=== PATIENT | female | born 1990 | race Caucasian/White ===

== ENCOUNTER 2020-06-11 08:19 | Inpatient (IN) ==
--- NOTE | 2020-05-25 19:35 | PAT Medication Instructions ---
Medication Instructions Date of Service May 25, 2020 Home Medications aripiprazole 15 mg tablet 7.5 mg PO QPM carbamazepine 200 mg tablet 600 mg PO HS cyclobenzaprine 10 mg tablet 10 mg PO TID PRN sertraline 100 mg tablet 100 mg PO BID topiramate 25 mg tablet 50 mg PO BID trazodone 100 mg tablet 200 mg PO HS alprazolam [Xanax] 0.25 mg PO DAILY PRN DO NOT take the morning of surgery cyclobenzaprine 10 mg tablet 10 mg PO TID PRN Take morning of surgery With a small sip of water, OTHERWISE NOTHING TO EAT OR DRINK AFTER MIDNIGHT: sertraline 100 mg tablet 100 mg PO BID topiramate 25 mg tablet 50 mg PO BID alprazolam [Xanax] 0.25 mg PO DAILY PRN (if needed) Take evening before surgery sertraline 100 mg tablet 100 mg PO BID topiramate 25 mg tablet 50 mg PO BID alprazolam [Xanax] 0.25 mg PO DAILY PRN (if needed) aripiprazole 15 mg tablet 7.5 mg PO QPM carbamazepine 200 mg tablet 600 mg PO HS cyclobenzaprine 10 mg tablet 10 mg PO TID PRN (if needed) trazodone 100 mg tablet 200 mg PO HS Other Notes If you have any questions please call us at [phone] or [phone] or [phone] or [phone]
--- NOTE | 2020-05-27 09:14 | Anesthesiology Consultation ---
Date of Service May 27, 2020 Assessment & Plan (1) Encounter for pre-operative examination: Per PAT assessment on 05/26: Travel screen-Travel to [facility]. Resides in [facility]. No known COVID-19 positive contacts. No current COVID-19 related symptoms. Patient had preop COVID testing done for 04/2020 surgery which was negative. Patient schedueld for preop COVID testing scheduled 06/08 ([facility]). Awaiting results. - Check test AM DOS - Hx bronchospasm: "lung spasm" with partial thyroidectomy 09/2018- done at [facility]. Subsequently had lap [place]: 04/28/20 at [facility]: Grade view 1, MAC#3, ETT 7.5. Per anesthesia report "Prior to wake-up noted for suspected bronchospasm. Albuterol administered." "No major complications" per anesthesia f/u progress note. Chart Review Chart Review: Acceptable Risk for Surgery (pending COVID testing) and Patient seen in Pre Admission Testing Teaching & Discussion Pre-Anesthesia Teaching/Discussion Notes: Instructed NPO after midnight before surgery,except medications with 15 cc of water. Medication instructions provided according to the PAT guidelines. History Surgery Operation Date: 06/11/20 11:05 Proposed Procedures p L5-S1 Decompression Fusion, Spinal Cord Monitoring - Negro Diaz, Height/Weight Height: 5 ft 3 in Weight: 113 kg Allergies Allergy/AdvReac Type Severity Reaction Status Date / Time Sulfa (Sulfonamide Allergy Intermediate HIVES/VOMIT Verified 05/24/20 07:59 Antibiotics) TING Medications Home Medications Medication Instructions Recorded Confirmed Last Taken aripiprazole 15 mg tablet 7.5 mg PO QPM tab 04/07/20 05/24/20 04/27/20 19:00 carbamazepine 200 mg tablet 600 mg PO HS tab 04/07/20 05/24/20 04/27/20 19:00 cyclobenzaprine 10 mg tablet 10 mg PO TID PRN 04/07/20 05/24/20 Unknown sertraline 100 mg tablet 100 mg PO BID tab 04/07/20 05/24/20 04/28/20 04:00 topiramate 25 mg tablet 50 mg PO BID 04/07/20 05/24/20 04/28/20 04:00 trazodone 100 mg tablet 200 mg PO HS tab 05/05/24/20 04/27/20 19:30 alprazolam [Xanax] 0.25 mg PO DAILY PRN 04/26/20 05/24/20 Unknown Past Medical History Medical History Anxiety and depression Degenerative disc disease lumbar History of kidney stones passed without intervention Insomnia Migraine Post traumatic stress disorder Temporomandibular joint disorder Exercise / Class Metabolic Activity III < 4 Walking/Shop/Light housework Past Family History Family History Mother Cancer cervical Lung cancer Aunt Ovarian cancer Father Hypertension Past Surgical History Surgical History H/O thyroidectomy Sep 2018 Right thyroid (NODULE/BENIGN) History of cholecystectomy History of hip surgery right hip 2016 and 2017 (LABRAL TEAR REPAIR/TEDNON RELEASE) History of placement of ear tubes Ear tubes Nov 2018 [place] teeth removed Past Anesthesia History No Family Hx of Anesthesia Complications and Other Patient: "lung spasm" with partial thyroidectomy 09/2018- done at [facility]. Subsequently had lap [place]: 04/28/20 at [facility]: Grade view 1, MAC#3, ETT 7.5. Per anesthesia report "Prior to wake-up noted for suspected bronchospasm. Albuterol administered." "No major complications" per anesthesia f/u progress note. History of PONV No Hx of PONV and No Hx of Motion Sickness Social History Smoking Status: Current every day smoker tobacco type: cigarettes Smoking cigarettes per day: 1 ppd> plans to quit on may 26 with switch to pouch tobacco Do You Dip or Chew Tobacco: Yes (planning to switch from cigarette to pouch tobacco- advised NPO AM DOS) Hx Alcohol Use: No Hx Substance Use: No substance use type: does not use Review of Systems Patient denies chest pain, shortness of breath, fever, chills, cough, wheezing, palpitations. Physical Exam Vital Signs VITALS BP 110/79 P 85 TEMP 98.8 SP02 98%RA RESP 16 PHYSICAL Full neck and c-spine range of motion. Full TMJ range of motion. TMD 3.5 finger breaths Mallampati Score 2 Dentition: lower front chipped tooth Lungs: clear throughout to auscultation Cardiac: regular rate and rhythm, no murmurs noted Spine: normal Carotid arteries: negative bruit Extremities: no edema Thick neck Testing Laboratory Results PT 10.3 Seconds (9.0-12.0) 05/27/20 09:47 INR 1.0 (0.9-1.1) 05/27/20 09:47 APTT 27.9 Seconds (21.0-31.0) 05/27/20 09:47 Urine Color Yellow 05/27/20 09:47 Urine Appearance Clear (Clear) 05/27/20 09:47 Urine pH 6.5 (4.5-7.5) 05/27/20 09:47 Ur Specific Orion 1.022 (1.000-1.030) 05/27/20 09:47 Urine Protein Negative (Negative) 05/27/20 09:47 Urine Glucose (UA) Negative (Negative) 05/27/20 09:47 Urine Ketones Negative (Negative) 05/27/20 09:47 Urine Nitrite Negative (Negative) 05/27/20 09:47 Ur Leukocyte Esterase Negative (Negative) 05/27/20 09:47 Blood Type A Positive 05/27/20 09:47 Antibody Screen NEGATIVE 05/27/20 09:47 05/10/20 WBC 6.9 H/H 14.1/44.3 PLATELETS 238 SODIUM 136 POTASSIUM 4.7 CHLORIDE 107 CO2 20 BUN 13 CREATININE 0.8 GLUCOSE 91 HGBA1C 5.7% COVID testin04/22/20: negative Electrocardiogram Date: 05/27/20 Findings: + NSR @ (80) Chest X-Ray Date: 05/07/20 Findings: + NAD
--- NOTE | 2020-05-27 10:28 | Electrocardiogram Report ---
Test Reason : Blood Pressure : / mmHG Vent. Rate : 080 BPM Atrial Rate : 080 BPM P-R Int : 178 ms QRS Dur : 076 ms QT Int : 350 ms P-R-T Axes : 078 083 076 degrees QTc Int : 403 ms Normal sinus rhythm Normal ECG No previous ECGs available Confirmed by Juan Diaz ([id number]) on 05/27/2020 10:27:34 AM Referred By: Negro Diaz Confirmed By:Juan Diaz
[2020-05-27 10:51] LABS: Partial Thromboplastin Time 27.9 Seconds (21.0-31.0); Prothrombin Time 10.3 Seconds (9.0-12.0)
[2020-05-27 10:59] LABS: Appearance Urine Clear (Clear); Bilirubin Urine Negative (Negative); Blood Urine Negative (Negative); Color Urine Yellow; Glucose Urine UA Negative (Negative); Ketones Urine Negative (Negative); Leukocyte Esterase Urine Negative (Negative); Nitrite Urine Negative (Negative); Protein Urine Negative (Negative); Specific Gravity Urine 1.022 (1.000-1.030); Urobilinogen Urine Negative (Negative); pH Urine 6.5 (4.5-7.5)
[~2020-06-11 08:19] MED LIST: ACETAMINOPHEN 500 MG TAB PO SCH; CEFAZOLIN 2000MG 2,000 MG/15 ML SYR IV SCH; CeleBREX 200 MG CAP PO SCH; GABAPENTIN 900 MG DOSE PO SCH; LR 15ML/HR IV SCH
[2020-06-11] MEDS ORDERED: ALBUT/IPRATROP 3MG/0.5MG NEB 3 ML VIAL NEB STA ×2 (09:31→09:32)
[2020-06-11] MEDS ORDERED: ONDANSETRON INJ 2 MG/ML 2 ML VIAL IV PRN ×2 (09:32→14:04)
[2020-06-11] MEDS ORDERED: HYDROmorphone INJ 1 MG/ML SYRINGE IV PRN ×2 (09:32→14:04)
[2020-06-11] MEDS ORDERED: ATROPINE SULFATE 0.1 MG/ML 10ML SYR IV PRN (09:32)
[2020-06-11] MEDS ORDERED: ePHEDrine sulfate 50 MG/ML AMP IV PRN (09:32)
[2020-06-11] MEDS ORDERED: MIDAZOLAM HCL 1 MG/ML 2ML VIAL ONE ×2 (09:34→12:55)
[2020-06-11] MEDS ORDERED: fentaNYL citrate 100 MCG/2 ML VIAL ONE (09:34)
[2020-06-11] MEDS ORDERED: LIDOCAINE HCL 2% 2 ML VIAL/AMP(20MG/ML) INFIL ONE (09:34)
[2020-06-11] MEDS ORDERED: DEXAMETHASONE SOD INJ 4 MG/ML VIAL ONE (09:34)
[2020-06-11] MEDS ORDERED: PROPOFOL IV EMULSION 10 MG/ML 20 ML VIAL IV ONE (09:34)
[2020-06-11] MEDS ORDERED: ROCURONIUM BROMIDE 10 MG/ML 5 ML VIAL IV ONE ×6 (09:34→11:50)
[2020-06-11] MEDS ORDERED: ONDANSETRON INJ 2 MG/ML 2 ML VIAL ONE (09:34)
--- NOTE | 2020-06-11 10:18 | History & Physical Bridge Note ---
Date of Service June 11, 2020 History & Physical Bridge Note I have examined the patient, reviewed the History & Physical and in the interval since the performance of the History & Physical I have noted the following changes of clinical significance: no changes noted
--- NOTE | 2020-06-11 10:19 | History & Physical Report ---
Date of Service June 11, 2020 Assessment & Plan (1) Neurogenic claudication due to lumbar spinal stenosis: L5-S1 decompression fusion Present on Admission?: Yes History of Present Illness Chief Complaint: Back and bilateral leg pain Primary Care Provider: Alena Anthony This is a 22-year-old female presents with chronic persistent back and bilateral leg pain. After failing extensive course of nonoperative care is here for surgical invention. Allergies Allergy/AdvReac Type Severity Reaction Status Date / Time Sulfa (Sulfonamide Allergy Intermediate HIVES/VOMIT Verified 06/11/20 08:39 Antibiotics) TING Home Medications Home Medications Medication Instructions Recorded Confirmed Type aripiprazole 15 mg tablet 7.5 mg PO QPM tab 04/07/20 06/11/20 History carbamazepine 200 mg tablet 600 mg PO HS tab 04/07/20 06/11/20 History cyclobenzaprine 10 mg tablet 10 mg PO TID PRN 04/07/20 06/11/20 History sertraline 100 mg tablet 100 mg PO BID tab 04/07/20 06/11/20 History topiramate 25 mg tablet 50 mg PO BID 04/07/20 06/11/20 History trazodone 100 mg tablet 200 mg PO HS tab 04/07/20 06/11/20 History alprazolam [Xanax] 0.25 mg PO DAILY PRN 04/26/20 06/11/20 History Past Med/Surg History Medical History Anxiety and depression Degenerative disc disease lumbar History of kidney stones passed without intervention Insomnia Migraine Post traumatic stress disorder Temporomandibular joint disorder Surgical History H/O thyroidectomy Sep 2018 Right thyroid (NODULE/BENIGN) History of cholecystectomy History of hip surgery right hip 2016 and 2017 (LABRAL TEAR REPAIR/TEDNON RELEASE) History of placement of ear tubes Ear tubes Nov 2018 [place] teeth removed Family History Mother Cancer cervical Lung cancer Aunt Ovarian cancer Father Hypertension Social History (Updated 04/08/20 @ 14:23 by Becca San RN) Preferred Language: Khmer Communication Ability: Effective Per Diem Rn Required: No Beliefs That Will Affect Care: None marital status: Current Living Situation: Family current occupational status: unemployed Other Information That Helps Us Care for You: No Feels Safe at Home: Yes Safety Concerns: Feels Safe At This Time Smoking Status: Current every day smoker Tobacco Type: cigarettes ; packs per day: 1 ; Cigarettes Per Day: 1 ppd> plans to quit on may 26 with switch to pouch tobacco ; Do You Dip or Chew Tobacco: Yes (planning to switch from cigarette to pouch tobacco- advised NPO AM DOS) ; Second Hand Exposure: Yes ; Tobacco Cessation Education Requested by Patient: No Hx Alcohol Use: No Hx Substance Use: No Physical Exam Physical Exam: Patient is alert and oriented neurologically intact Heart regular rate and rhythm Lungs clear to auscultation Results & Data Vital Signs (Past 12 Hours) Vital Signs Temp Pulse Resp BP Pulse Ox 06/11/20 09:33 77 14 97 06/11/20 08:33 36.6 C 78 18 127/74 96
[2020-06-11] MEDS ORDERED: BACITRACIN INJ 50,000 UNIT VIAL ONE (10:37)
[2020-06-11] MEDS ORDERED: BUPIVACAINE/EPINEPHRINE 0.5% MPF 1:200,000 10 ML VIAL ONE (10:37)
[2020-06-11] MEDS ORDERED: FLOSEAL HEMOSTATIC MATRIX 10ML TOP ONE (11:27)
[2020-06-11] MEDS ORDERED: GLYCOPYRROLATE 0.2 MG/ML VIAL ONE (12:17)
[2020-06-11] MEDS ORDERED: NEOSTIGMINE METHYLSULFATE 1 MG/ML 10ML VIAL ONE (12:17)
--- NOTE | 2020-06-11 12:27 | Operative Report ---
Post Operative Report Pre & Post Diagnosis Operation Date: 06/11/20 10:05 <No data on this case meets the specified criteria> Preop diagnosis Lumbar spinal stenosis with neurogenic claudication. Morbid obesity. Postop diagnosis Same I identified the patient and participated in the time-out.: Yes Procedure Operation Date: 06/11/20 10:05 Actual Procedures Bilateral medial facetectomies and foraminotomies L5-S1. #2 posterior spinal fusion L5-S1. #3 placement posterior instrumentation L5-S1. #4 interbody fusion L5-S1. #5 placement of titanium 10 x 22 mm cage at L5-S1. #6 placement locally harvested morselized autograft in the posterior lateral gutters. #7 placement infuse collagen sponge, master graft in the posterior gutters and ostial amp interbody space. Surgeon Negro Diaz, DO Miller Head Assistant Wet Process Hesham [place] Estimated Blood Loss 100 Findings See Below The patient is 5 foot 3 inches tall weighing over 110 kg with a BMI of 43. The patient's body habitus did add significant technical difficulty requiring our deepest retractors and longus instruments in order to perform the procedure. This at least 50% increase to the operative time. Specimens Same Indications This this is a 22-year-old female that presents with above-mentioned diagnosis after failing extensive course of nonoperative care is here for the above-mentioned procedure. Description of Procedure Patient was met with identified informed consent obtained. Patient was then taken to the operative suite underwent intubation placed in the prone position the Alban table on top of the Boogie frame. All bony prominences well-padded eyes inspected to ensure no external pressure placed upon the. This point the lumbar spine was prepped and draped in normal sterile fashion. Sharp dissection with the assistance of Bovie cautery was performed down to and exposing the lamina and transverse processes of L5 and sacral ala bilaterally. From caudal cephalad fashion complete laminectomy of L5 was performed including bilateral medial facetectomies and foraminotomies were performed. Pedicle screws were then placed in L5 and S1 levels bilaterally with assistance of fluoroscopy and appropriate size cole placed. Bilateral transforaminal approach on the left complete discectomy was performed endplates curetted to subcortical bleeding bone and a 10 x 22 mm titanium cage filled osteo-bone graft tapped in position. The rods were then locked in final position bilaterally. The transverse processes of L5 and sacral ala were then burred to subcortical bleeding bone. Infuse collagen sponge master graft local autograft was placed in the posterior gutters. 15 round LI drain inserted. Incision was then closed with 1 Vicryl the fascia 2-0 Vicryl subcutaneously and 4 Monocryl for final skin closure. Steri-Strip sterile dressings placed. Patient waken taken to PACU in stable condition. Please note spinal cord monitoring was utilized throughout the procedure no changes noted. Lastly Hesham record was present throughout the entire procedure involved the patient positioning complex portions of the surg ken and final skin closure. I attest to the content of the Intraoperative Record and any orders documented therein. Any exceptions are noted below.
--- NOTE | 2020-06-11 12:27 | Fluoroscopy Report ---
LUMBAR SPINE, INTRAOPERATIVE FLUOROSCOPY HISTORY: L5-S1 decompression and fusion. FLUOROSCOPY TIME: 18 seconds. FINDINGS: Intraoperative fluoroscopy was provided for the lumbar spine. 2 fluoroscopic spot images we re obtained. Posterior decompression fusion at L5-S1 with pedicle screws and rods. The hardware appea rs intact. IMPRESSION: Fluoroscopy provided for a L5-S1 posterior decompression and fusion. ACT 112: Negative or not required by law. Electronically signed by: Mahin Smyth M.D. 06/11/2020 12:26 PM
[2020-06-11] MEDS: fentaNYL citrate 100 MCG/2 ML VIAL IV PRN ×4 (12:52→13:07)
[2020-06-11] MEDS ORDERED: ALBUTEROL HFA INHALER 8.5 GM ONE (12:53)
--- NOTE | 2020-06-11 13:45 | Anesthesiology Progress Note ---
Date of Service June 11, 2020 Anesthesia Post Procedure Vital Signs Vital Signs: Temp Pulse Pulse Resp BP BP Pulse Ox 06/11/20 13:35 71 16 128/82 95 06/11/20 13:25 36.7 C 82 16 126/76 96 06/11/20 13:15 74 18 128/78 96 06/11/20 13:05 70 18 141/97 H 100 06/11/20 12:55 95 H 18 128/86 100 06/11/20 12:45 36.3 C L 102 H 18 138/88 97 06/11/20 09:33 77 14 97 06/11/20 08:33 36.6 C 78 18 127/74 96 Pain Intensity Lower Back: Pain Intensity: 5 Transfer of Care Handoff Completed per policy Notes Mental Status: alert / awake / arousable and participated in evaluation Patient Amnestic to Procedure: Yes Nausea / Vomiting: adequately controlled Pain: adequately controlled Airway Patency, RR, SpO2: stable & adequate BP & HR: stable & adequate Hydration State: stable & adequate Anesthetic Complications: no major complications apparent and Pt Satisfied with anesthetic care
[2020-06-11] MEDS ORDERED: FAMOTIDINE 20 MG TAB PO PRN (14:04)
[2020-06-11] MEDS ORDERED: LORazepam 0.5 MG TAB PO PRN (14:04)
[2020-06-11] MEDS ORDERED: METOCLOPRAMIDE HCL INJ 5 MG/ML 2 ML VIAL IV PRN (14:04)
[2020-06-11] MEDS ORDERED: HYDROmorphone INJ 0.5 MG/0.5 ML SYR IV PRN (14:04)
[2020-06-11] MEDS ORDERED: SOD PHOSPHATE/SOD BIPHOSPHATE ENEMA 132 ML BTL PR PRN (14:04)
[2020-06-11] MEDS ORDERED: ALUMINUM/MAGNESIUM SUSP 30 ML UDC PO PRN (14:04)
[2020-06-11] MEDS ORDERED: PROMETHAZINE HCL 12.5 MG in SODIUM CHLORIDE 0.9% 50 ML IV PRN (14:04)
[2020-06-11] MEDS ORDERED: DO NOT ADMINISTER FLU VACCINE PRN (14:04)
[2020-06-11] MEDS ORDERED: ACETAMINOPHEN 500 MG TAB PO PRN (14:04)
[2020-06-11] MEDS ORDERED: NALOXONE HCL 0.4 MG/1 ML VIAL/CARP IV PRN (14:04)
[2020-06-11] MEDS ORDERED: DO NOT ADMINISTER PNEUMOCOCCAL VACCINE PRN (14:04)
[2020-06-11] MEDS ORDERED: MAGNESIUM HYDROXIDE SUSP 30 ML UDC PO PRN (14:04)
[2020-06-11] MEDS ORDERED: bisacodyL 10 MG SUPP PR PRN (14:04)
[2020-06-11] MEDS ORDERED: LORazepam 0.5 MG/1 ML VIAL IV PRN (14:04)
[2020-06-11] MEDS ORDERED: ONDANSETRON 4 MG OD TAB PO PRN (14:04)
[2020-06-11] MEDS ORDERED: ALPRAZolam 0.25 MG TABLET PO PRN (14:04)
[2020-06-11] MEDS ORDERED: ACETAMINOPHEN 1,000 MG/100 ML VIAL IV PRN (14:04)
[2020-06-11] MEDS ORDERED: CYCLOBENZAPRINE HCL 10 MG TAB PO PRN (14:13)
[2020-06-11] MEDS: OXYCODONE HCL IR 5 MG TAB (IMMEDIATE RELEASE) PO PRN ×2 (14:46→21:06)
[2020-06-11] MEDS: KETOROLAC TROMETHAMINE 15 MG/ML VIAL IV SCH ×2 (14:47→20:55)
[2020-06-11] MEDS: LACTATED RINGER'S 1,000 ML IV SCH ×2 (14:51→23:33)
[2020-06-11] MEDS: CEFAZOLIN 2000MG 2,000 MG/15 ML SYR IV SCH (19:35)
[2020-06-11] MEDS: NICOTINE 21 MG/24 HR TDSY TD SCH (20:53)
[2020-06-11] MEDS: TOPIRAMATE 50 MG TAB PO SCH (20:53)
[2020-06-11] MEDS: TRAZODONE HCL 100 MG TAB PO SCH ×3 (20:54→23:39)
[2020-06-11] MEDS: SERTRALINE HCL 100 MG TABLET PO SCH (20:54)
[2020-06-11] MEDS: ARIPiprazole 5 MG TAB PO SCH (20:54)
[2020-06-11] MEDS: DOCUSATE SODIUM/SENNA 50/8.6MG TAB PO SCH (20:55)
[2020-06-11] MEDS: OXcarbazepine 150 MG TABLET PO SCH (20:56)
[2020-06-12] MEDS: KETOROLAC TROMETHAMINE 15 MG/ML VIAL IV SCH ×2 (02:56→09:27)
[2020-06-12] MEDS: CEFAZOLIN 2000MG 2,000 MG/15 ML SYR IV SCH (02:56)
[2020-06-12] MEDS: POLYETHYLENE (MIRALAX) 17 GM PACK PO SCH ×3 (05:28→17:10)
[2020-06-12 08:03] LABS: BUN Creatinine Ratio 15.2 (10-20); Basophils # (auto) 0.02 K/uL (0-0.2); Basophils % (auto) 0.2 %; Calcium 7.8 mg/dl (8.5-10.1); Creatinine Clr Calc Pharmacy 121.7 ml/min; Eosinophils # (auto) 0.12 K/uL (0-0.5); Eosinophils % (auto) 1.3 %; Est GFR (African American) 112.9; Est GFR (Non-African American) 97.4; Hematocrit (blood only) 35.9 % (37-47); Hemoglobin 11.9 g/dL (12.0-16.0); Immature Granulocytes # (auto) 0.04 K/uL (0.00-0.02); Immature Granulocytes % (auto) 0.4 %; Lymphocytes # (auto) 2.14 K/uL (1.2-3.4); Lymphocytes % (auto) 23.2 %; Mean Corpuscular Hemoglobin 30.1 pg (25-34); Mean Corpuscular Hgb Conc 33.1 g/dL (32-36); Mean Corpuscular Volume 90.7 fL (80-100); Monocytes # (auto) 0.45 K/uL (0.11-0.59); Monocytes % (auto) 4.9 %; Neutrophils # (auto) 6.45 K/uL (1.4-6.5); Platelet Count 205 K/uL (130-400); Potassium 3.4 mmol/L (3.5-5.1); Red Blood Count 3.96 M/uL (4.2-5.4); White Blood Count 9.22 K/uL (4.8-10.8)
[2020-06-12] MEDS: OXYCODONE HCL IR 5 MG TAB (IMMEDIATE RELEASE) PO PRN ×4 (08:26→23:32)
[2020-06-12] MEDS: TOPIRAMATE 50 MG TAB PO SCH ×2 (09:26→20:47)
[2020-06-12] MEDS: SERTRALINE HCL 100 MG TABLET PO SCH ×2 (09:26→20:48)
[2020-06-12] MEDS: NICOTINE 21 MG/24 HR TDSY TD SCH (09:27)
--- NOTE | 2020-06-12 09:55 | Orthopedic Progress Note ---
Date of Service June 12, 2020 Assessment & Plan (1) Neurogenic claudication due to lumbar spinal stenosis: This time we will continue physical therapy monitor LI output anticipate discharge home in the next few days. Present on Admission?: Yes Admission and Anticipated Discharge Date Admission Date: June 11, 2020 Subjective Back pain controlled leg symptoms improved. Physical Exam Physical Exam: Patient appears comfortable is good strength testing. Results & Data ([facility]) Vital Signs (Past 12 Hours) Vital Signs Temp Pulse Pulse Resp BP Pulse Ox 06/12/20 07:39 36.9 C 77 18 107/70 97 06/12/20 02:59 37.1 C 79 16 97/61 L 97 06/11/20 22:53 36.9 C 83 16 113/66 97
[2020-06-12] MEDS: OXcarbazepine 150 MG TABLET PO SCH (20:47)
[2020-06-12] MEDS: TRAZODONE HCL 100 MG TAB PO SCH (20:47)
[2020-06-12] MEDS: DOCUSATE SODIUM/SENNA 50/8.6MG TAB PO SCH (20:48)
[2020-06-12] MEDS: ARIPiprazole 5 MG TAB PO SCH (20:48)
[2020-06-13] MEDS: OXYCODONE HCL IR 5 MG TAB (IMMEDIATE RELEASE) PO PRN ×4 (07:16→21:41)
[2020-06-13] MEDS: DEXAMETHASONE SOD PHOSPHATE 8 MG in SYRINGE 0 ML IV SCH (08:47)
[2020-06-13] MEDS: SERTRALINE HCL 100 MG TABLET PO SCH ×2 (08:48→20:28)
[2020-06-13] MEDS: NICOTINE 21 MG/24 HR TDSY TD SCH (08:48)
[2020-06-13] MEDS: TOPIRAMATE 50 MG TAB PO SCH ×2 (08:48→20:28)
--- NOTE | 2020-06-13 08:53 | Orthopedic Progress Note ---
Date of Service June 13, 2020 Assessment & Plan (1) Neurogenic claudication due to lumbar spinal stenosis: Will continue with physical therapy today. Maintain LI drain and dressing. DVT prophylaxis is in the form of teds and SCDs. Continue with aggressive bowel regimen. Continue with pain control. Anticipate discharge home tomorrow. Admission and Anticipated Discharge Date Admission Date: June 11, 2020 Supervising Physician Co-Signing Physician Notes Dr. Negro Diaz Subjective Patient is postoperative day 2 L5-S1 decompression fusion. She is having a bit more back pain this morning. No radicular leg pain. History and physical therapy she is ambling roughly 425 feet. She is passing flatus but no bowel movement. Denies shortness of breath or chest pain. Review of Systems Review of Systems: All systems reviewed & are unremarkable except as noted in HPI & below Physical Exam Physical Exam: She sitting in bed in no acute distress. She is alert and oriented x3. Lower extremities are neurovascular intact. Calf soft nontender bilaterally. Strength is intact bilaterally. Lumbar dressing is clean dry and intact. LI drain intact and functioning. Results & Data ([facility]) Vital Signs (Past 12 Hours) Vital Signs Temp Pulse Resp BP BP Pulse Ox 06/13/20 07:33 37.1 C 83 18 108/71 96 06/12/20 23:38 36.9 C 90 18 134/79 95
--- NOTE | 2020-06-13 14:15 | Anesthesiology Progress Note ---
Date of Service June 13, 2020 Anesthesia Post Procedure Vital Signs Vital Signs: Temp Pulse Resp BP BP Pulse Ox 06/13/20 07:33 37.1 C 83 18 108/71 96 06/12/20 23:38 36.9 C 90 18 134/79 95 06/12/20 15:09 37.1 C 75 17 105/70 95 Pain Intensity Lower Back: Pain Intensity: 5 Notes Mental Status: alert / awake / arousable and participated in evaluation Nausea / Vomiting: adequately controlled Pain: adequately controlled Airway Patency, RR, SpO2: stable & adequate BP & HR: stable & adequate Hydration State: stable & adequate Anesthetic Complications: no major complications apparent and Pt Satisfied with anesthetic care
[2020-06-13] MEDS: TRAMADOL HCL 50 MG TABLET PO PRN ×2 (14:23→18:27)
[2020-06-13] MEDS: ARIPiprazole 5 MG TAB PO SCH (20:27)
[2020-06-13] MEDS: TRAZODONE HCL 100 MG TAB PO SCH (20:28)
[2020-06-13] MEDS: DOCUSATE SODIUM/SENNA 50/8.6MG TAB PO SCH (20:28)
[2020-06-13] MEDS: OXcarbazepine 150 MG TABLET PO SCH (20:28)
[2020-06-14] MEDS: OXYCODONE HCL IR 5 MG TAB (IMMEDIATE RELEASE) PO PRN ×2 (07:31→12:30)
[2020-06-14] MEDS: NICOTINE 21 MG/24 HR TDSY TD SCH (08:19)
[2020-06-14] MEDS: DEXAMETHASONE SOD PHOSPHATE 8 MG in SYRINGE 0 ML IV SCH (08:20)
[2020-06-14] MEDS: SERTRALINE HCL 100 MG TABLET PO SCH (08:20)
[2020-06-14] MEDS: TOPIRAMATE 50 MG TAB PO SCH (08:20)
--- NOTE | 2020-06-14 11:44 | Discharge Summary ---
Date of Service June 14, 2020 Admission HPI Per Admitting Provider This is a 22-year-old female presents with chronic persistent back and bilateral leg pain. After failing extensive course of nonoperative care is here for surgical invention. Principal Diagnosis Lumbar spinal stenosis with neurogenic claudication Discharge Data Allergies Allergy/AdvReac Type Severity Reaction Status Date / Time Sulfa (Sulfonamide Allergy Intermediate HIVES/VOMIT Verified 06/11/20 08:39 Antibiotics) TING Consultations 06/11/20 14:04 Consult Case Management - Discharge Planning Routine Procedures Performed Operation Date: 06/11/20 10:05 Actual Procedures p L5-S1 Decompression and Fusion, L5-S1 Interbody Insertion, Spinal Cord Monitoring(Not Applicable) - Negro Diaz, Ordered Studies 06/11/20 10:05 FL fluoroscopy <1hr Routine FL lumbar spine 2-3V Routine Hospital Course (1) Neurogenic claudication due to lumbar spinal stenosis: Patient with lumbar decompression fusion tolerated this well staying with orthopedic for possibly. Postop day 1 she was up and ambulating progressed to postop day #2 on postop day #3 back pain was well controlled leg pain markedly improved LI drain decreasing probably. She had excellent strength testing. Subsequent discharge home. Discharge orders instructions from the chart for further review. Total Time Total Time Spent Total Time Spent (In Minutes): 20 minutes Discharge Plan Discharge Items Patient Disposition: Home - Self-Care Reason For Visit: Intervertebral Disc Disorders with Radiculopathy Discharge Diagnosis: Lumbar spinal stenosis with neurogenic claudication Activity: As commented below Non-emergency contact: Primary Care Provider Call non-emergency contact if: you have any medication questions Follow-up/Referrals: Alena Anthony PA-C [Primary Care Provider] - Diet: Regular Addtl Attending Provider Instructions: ACTIVITY RECOMMENDATIONS: SELF CARE INSTRUCTIONS AFTER THORACIC/LUMBAR FUSIONS 1. You may walk to your tolerance. It is good exercise for your legs and back. Expect some back and intermittent leg aches and pains. 2. You may perform "counter-top" level activities (make a sandwich, donato with a project, etc.). 3. No bending or lifting of more than 10 pounds or back twisting of any nature (roll like a log when turning in bed). 4. You may ride in a car for 20-30 minutes at a time. No driving until after your first visit with your doctor. 5. Frequent changes of position and restricting sitting to 30 minutes at a time will help limit the amount of back spasms and stiffness you may experience. 6. You may discontinue the use of ambulatory aids (cane, crutches, etc.) once your strength and confidence allow. 7. You may ems coordinator the shower and let water strike your incision when you arrive home at least once daily. Do not take a tub bath, sit in a hot tub or go into a swimming pool until after your first recheck in the office. SPECIAL CARE INSTRUCTIONS: VERY IMPORTANT TO READ AND REVIEW A. Your surgical incision has been closed with a cosmetic suture under the skin that will dissolve in about 6 weeks. In 14 days, you can use a pair of clean scissors and cut the suture that is left outside of the skin at the ends of your incision. 1. The small skin tapes can be removed 7 days after surgery if they have not fallen off by that point. 2. You may keep the wound open to air as much as possible to promote healing after post-op day number 5 unless told otherwise by your doctor. 3. If you think the wound looks like it is becoming infected (redness or worsening drainage) and/or you are experiencing fever, chill or worsening back pain and muscle spasms, contact the office so that we may evaluate you as soon as possible. B. Complications are uncommon, but please contact us if you have any signs or symptoms of: 1. wound infection (fever higher than 102.5 degrees F, redness, separation of wound, drainage, or increasing pain from the incision) 2. blood clots in legs (pain, swelling, redness and warmth in legs) 3. urinary tract infection (fever higher than 102.5 degrees F, burning upon urination or increased frequency of urination) 4. nerve problems (inability to walk on your toes or heels, numbness, loss of bowel or bladder control) 5. any other symptoms that concern you C. Please call the office at if you have any concerns or questions about your operation or recovery. D. No smoking! Smoking drastically decreases the chance of a solid fusion. E. Do not take any anti-inflammatory medications (Indocin, Advil, Motrin, Aspirin, Naprosyn, etc.) as these may inhibit the chance of a solid fusion. Tylenol is okay to take for pain. MANAGING PAIN AFTER SPINAL SURGERY 1. Narcotic medication is intended for short-term use and will be provided for surgical pain. Surgical pain usually lasts for a period of 4-6 weeks. Narcotic medication includes Percocet, Vicodin, Darvocet, Tylenol #3 or Lortab. 2. Longer-term pain is more appropriately treated with non-narcotic medication such as Tylenol ES. 3. Muscle spasm is not appropriately treated with narcotics. Muscle relaxers such as Soma, Flexeril or Skelaxin can be used along with Tylenol ES. 4. Remember that we all live with some "aches and pains". This is not unusual or uncommon after an injury or as we get older. a. Back pain is expected and may include muscle spasms for 4 to 6 weeks after surgery. The pain should gradually improve. If the pain worsens for no apparent reason, please contact the office. b. Intermittent leg pain may also be experienced and should not be concerned about unless it worsens for no apparent reason. If so, please contact the office. 5. We will provide appropriate medication within the normal guidelines of their prescribed use. We will also be very cautious and aware of potential abuse and extended duration of patients' medication needs. a. Pain medications are for your comfort and to assist with sleep and rest so that the tissue can heal. They are not provided in order to return to normal activity and should not be used through the day. To do so or worsening pain at night can result from ongoing tissue damage and development of tolerance to the prescribed medicine. 6. Please allow 2-3 days to process refills. Prescriptions will not be mailed but must be picked up at the office. FOLLOW UP VISIT: Keep your scheduled follow-up appointment. Any questions, please call the office at . Pending Studies at Discharge: No Stand-Alone Forms: My [facility] Pushfor, Opioid Pain Management, Smoking Cessation Medications and DC Order Prescriptions: New tramadol 50 mg tablet 50 mg PO Q6H PRN (Reason: pain, moderate) Qty: 20 RF: 0 oxycodone 5 mg tablet 5 mg PO Q6H PRN (Reason: pain, severe) Qty: 20 RF: 0 Continued aripiprazole 15 mg tablet 7.5 mg PO QPM RF: 0 cyclobenzaprine 10 mg tablet 10 mg PO TID PRN (Reason: muscle spasm) RF: 0 sertraline 100 mg tablet 100 mg PO BID RF: 0 topiramate [Topamax] 25 mg tablet 50 mg PO BID RF: 0 trazodone 100 mg tablet 200 mg PO HS RF: 0 alprazolam [Xanax] 0.25 mg Tablet 0.25 mg PO DAILY PRN (Reason: Anxiety) RF: 0 oxcarbazepine [Trileptal] 600 mg Tablet 600 mg PO HS RF: 0 Discharge Orders: Discharge Order (Routine); Ordered 06/14/20 Ordered By: Negro Diaz Admission Data Admit Date/Time: 06/11/20 13:14 Attending Provider: Negro Diaz Admit Provider: Negro Diaz Primary Care Provider: Alena Anthony. Other Interventions: Discharge Summary Assessment (RN) Last Done: 06/14/20 09:02
== END 2020-06-14 12:55 | disposition home or self-care (01) | DRG 455 ==
LOC: ASU 08:19 → 3E 13:14

== ENCOUNTER 2023-07-31 07:35 | Inpatient (IN) ==
[2023-07-31] MEDS ORDERED: PENICILLIN G POTASSIUM 6 MU in DEXTROSE 5% 250 ML IV STA (08:30)
[2023-07-31] MEDS ORDERED: LIDOCAINE 1% LOCAL 20 ML VIAL INFIL PRN (08:30)
[2023-07-31] MEDS ORDERED: OXYTOCIN 30 UNITS/500 ML BAG IV PRN ×2 (08:30→09:44)
[2023-07-31] MEDS: LACTATED RINGER'S 1,000 ML IV PRN ×2 (09:24→16:07)
[2023-07-31 09:28] LABS: Hematocrit (blood only) 37.8 % (37.0-47.0); Hemoglobin 12.7 g/dl (12.0-16.0); Mean Corpuscular Hemoglobin 30.3 pg (25.0-34.0); Mean Corpuscular Hgb Conc 33.6 g/dL (32.0-36.0); Mean Corpuscular Volume 90.2 fL (80.0-100.0); Mean Platelet Volume 10.4 fL (9.4-12.4); Platelet Count 235 K/uL (130-400); RDW Coefficient of Variation 13.5 % (11.5-14.5); RDW Standard Deviation 44.6 fL (36.4-46.3); Red Blood Count 4.19 M/uL (4.20-5.40); White Blood Count 13.55 K/ul (4.8-10.8)
--- NOTE | 2023-07-31 09:41 | History & Physical Report ---
Date of Service July 31, 2023 Assessment & Plan (1) Gestational diabetes mellitus (GDM) affecting : (2) Carrier of group B Streptococcus: Plan 33 yo G1 at 43 wga presents for late term IOL VSS Fetus cat 1 Labor - pereira in but feels like almost out so will just start pit to help maximize use from pereira A1GDM - bg q4 GBS+, pcn ordered epidural prn Admission and Anticipated Discharge Date Admission Date: July 31, 2023 History of Present Illness Chief Complaint: IOL Primary Care Provider: Alena Braswell PA-C 33 yo G1 at 43 wga w/ ALICE 07/24 presents for late term IOL. +FM; denies reg ctx, LOF, VB. 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 Hx: G1 regular cycles denies hx STIs Allergies Allergy/AdvReac Type Severity Reaction Status Date / Time Sulfa (Sulfonamide Allergy Intermediate HIVES/VOMIT Verified 07/30/23 15:53 Antibiotics) ING Home Medications Medication Instructions Recorded Confirmed Type acetaminophen 500 mg capsule 1,000 mg PO Q6H PRN Pain 06/12/23 07/31/23 History levalbuterol tartrate 45 2 inh inhalation Q6H PRN Wheezing 06/27/23 07/31/23 History mcg/actuation aerosol inhaler diphenhydramine HCl 25 mg capsule 25 mg PO HS PRN Sleep 07/30/23 07/31/23 History (Benadryl) vits no.124-ferrous fum 1 tab PO DAILY 07/30/23 07/31/23 History 27 mg iron-folic acid 800 mcg tablet ( Vitamin) Patient History Medical History Anxiety and depression Asthma Degenerative disc disease Gestational diabetes History of COVID-19 History of kidney stones Hx of Christensen's palsy Insomnia Migraine Mixed conductive and sensorineural hearing loss of left ear with restricted hearing of right ear Morbid obesity due to excess calories Post traumatic stress disorder Sensorineural hearing loss of both ears Spina bifida occulta Tachycardia Temporomandibular joint disorder Surgical History H/O thyroidectomy History of cholecystectomy History of hip surgery History of placement of ear tubes History of spinal fusion History of surgery [place] teeth removed Family History Mother Cancer Lung cancer Aunt Ovarian cancer Father Hypertension Allergies Aunt No problems noted. Grandfather Heart disease Grandfather (Paternal) Colorectal cancer Other Cervical cancer No family history of bleeding disorder Denies family history of Breast cancer Stroke Asthma Social History Smoking Status: Current every day smoker Tobacco Type: Cigarettes Age Started Using Tobacco: 18; packs per day: 1; Cigarettes Per Day: 1.5 packs a day; Second Hand Exposure: Yes; Do You Dip or Chew Tobacco: No; Tobacco Cessation Education Requested by Patient: No Hx Alcohol Use: No Hx Substance Use: No Preferred Language: [place] Communication Ability: Effective Visual Impairment: Limited Hearing Ability: Hard of Hearing 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 Beliefs That Will Affect Care: None marital status: marital status details: partner Yareli Hogue ([phone] Current Living Situation: Spouse Current Living Situation Comment: lives with partner, parents, dog, cat-family changing litter current occupational status: unemployed How many Children do You have: 0 Other Information That Helps Us Care for You: No Feels Safe at Home: Yes Safety Concerns: Feels Safe At This Time Diet: regular Do you think of yourself as: lesbian/pope/homosexual Gender Identity: Female Assistive Devices: None and Walker Physical Exam Genitourinary: OB Exam Abdomen: + vertex (confirmed by bsus) and + estimated weight (7-8) Manual OB Exam: + cervical dilation (~2cm, pereira bulb in) OB Exam Monitor Tracing: + external FHT monitor used, + external uterine monitor used (irreg ctx) and + category I (120/mod/+accel/-decel) Results & Data Vital Signs (Past 12 Hours) Vital Signs Temp Pulse Resp BP 07/31/23 07:55 97.9 F 114 H 20 123/72 07/31/23 07:42 97.9 F 114 H 20 123/72 Laboratory Results OB Labs: Blood Type A Positive 01/02/23 Antibody Screen NEGATIVE 01/02/23 Hemoglobin 12.1 g/dl (12.0-16.0) 05/07/23 Hematocrit 36.5 % (37.0-47.0) L 05/07/23 Mean Corpuscular Volume 87.1 fL (80.0-100.0) 02/04/23 Platelet Count 229 K/uL (130-400) 02/04/23 Rubella IgG Antibody Immune (Immune) 01/02/23 Rapid Plasma Reagin Nonreactive (Nonreactive) 01/02/23 Hepatitis B Surface Antigen. NON-REACTIVE (NON-REACTIVE) 01/02/23 Hepatitis C Antibody (EIA) NON-REACTIVE (NON-REACTIVE)B 01/02/23 HIV (1&2) Ag and Ab Confirmation NON-REACTIVE (NON-REACTIVE) 01/02/23 Glucose 1 Hour 50 gm Load 143 mg/dl (70-130) H 02/12/23 Maternal Serum Alpha Fetoprotein 26.7 ng/mL 02/12/23 OB Optional Labs: Chlamydia trachomatis RNA Not Detected (NotDetected) 01/02/23 Neisseria gonorrhoeae RNA Not Detected (NotDetected) 01/02/23 Thyroid Stimulating Hormone (TSH) 1.826 uIu/ml (0.300-4.500) 05/07/23 Alpha Fetoprotein Triple Screen SEE NOTE 02/12/23 Labs Reviewed: cfdna-low risk--mln msafp neg--smp GBS+ Diagnostic Findings 07/02 EFW 2988g 49%, ant plac Coding Level of Care Code None Diagnoses Gestational diabetes mellitus (GDM) affecting O24.419 Carrier of group B Streptococcus Z22.330
--- NOTE | 2023-07-31 11:46 | Labor Progress Brief Note ---
Date of Service July 31, 2023 Subjective Feeling some cramping Assessment & Plan (1) Gestational diabetes mellitus (GDM) affecting : (2) Carrier of group B Streptococcus: Plan 33 yo G1 at 43 wga presents for late term IOL VSS Fetus cat 1 Labor - pereira out, continue pit. Plan arom A1GDM - bg q4 GBS+, pcn ordered epidural prn Admission and Anticipated Discharge Date Admission Date: July 31, 2023 Physical Exam Genitourinary: Manual OB Exam: + cervical dilation 3 cm, + cervical effacement 50% and + station -2 OB Exam Monitor Tracing: + external FHT monitor used, + external uterine monitor used (q4-6) and + category I (120/mod/+accel/-decel) Results & Data Vital Signs (Past 12 Hours) Vital Signs Temp Pulse Resp BP 07/31/23 07:55 97.9 F 114 H 20 123/72 07/31/23 11:26 98.6 F 91 H 20 07/31/23 11:26 119/60 07/31/23 11:12 87 07/31/23 11:12 140/69 07/31/23 10:57 97 H 07/31/23 10:57 136/60 07/31/23 10:42 92 H 07/31/23 10:42 137/74 07/31/23 10:25 93 H 20 07/31/23 10:25 130/67 07/31/23 07:42 97.9 F 114 H 20 123/72 Coding Level of Care Code None Diagnoses Gestational diabetes mellitus (GDM) affecting O24.419 Carrier of group B Streptococcus Z22.330
[2023-07-31] MEDS: PENICILLIN G POTASSIUM 3 MU in DEXTROSE 5% 100 ML IV PRN ×3 (13:23→21:31)
--- NOTE | 2023-07-31 14:18 | Labor Progress Brief Note ---
Date of Service July 31, 2023 Subjective Feeling ctx more Assessment & Plan (1) Gestational diabetes mellitus (GDM) affecting : (2) Carrier of group B Streptococcus: Plan 33 yo G1 at 43 wga presents for late term IOL VSS Fetus cat 1 Labor - pit at 10, now s/p arom. Continue induction A1GDM - bg q4 GBS+, pcn ordered epidural prn Admission and Anticipated Discharge Date Admission Date: July 31, 2023 Physical Exam Genitourinary: Manual OB Exam: + cervical dilation (3-4), + cervical effacement 50%, + station -2 and + amniotic fluid (arom clear) OB Exam Monitor Tracing: + external FHT monitor used, + external uterine monitor used (q3-4) and + category I (120/mod/+accel/-decel) Results & Data Vital Signs (Past 12 Hours) Vital Signs Temp Pulse Resp BP 07/31/23 07:55 97.9 F 114 H 20 123/72 07/31/23 13:27 100 H 07/31/23 13:27 137/65 07/31/23 12:27 94 H 07/31/23 12:27 125/59 L 07/31/23 11:26 98.6 F 91 H 20 07/31/23 11:26 119/60 07/31/23 11:12 87 07/31/23 11:12 140/69 07/31/23 10:57 97 H 07/31/23 10:57 136/60 07/31/23 10:42 92 H 07/31/23 10:42 137/74 07/31/23 10:25 93 H 20 07/31/23 10:25 130/67 07/31/23 07:42 97.9 F 114 H 20 123/72 Coding Level of Care Code None Diagnoses Gestational diabetes mellitus (GDM) affecting O24.419 Carrier of group B Streptococcus Z22.330
[2023-07-31] MEDS ORDERED: LIDOCAINE 2%/EPINEPHRINE 1:200,000 20 ML PF ONE (15:47)
[2023-07-31] MEDS ORDERED: ePHEDrine sulfate 50 MG/ML AMP ONE (15:47)
[2023-07-31] MEDS ORDERED: SODIUM CHLORIDE 0.9% PF INJ 10 ML VIAL ONE (15:47)
[2023-07-31] MEDS ORDERED: fentaNYL citrate PF 100 MCG/2 ML VIAL ONE (15:47)
[2023-07-31] MEDS ORDERED: BUPIVACAINE 0.25% PF 30 ML VIAL ONE (15:47)
[2023-07-31] MEDS ORDERED: fentaNYL 2MCG/ML ROPIVACAINE 1.25MG/ML 100 ML BAG EPI ONE (15:48)
[2023-07-31] MEDS ORDERED: fentaNYL citrate PF 100 MCG/2 ML VIAL EPI STA (15:58)
[2023-07-31] MEDS ORDERED: fentaNYL 2MCG/ML ROPIVACAINE 1.25MG/ML 100 ML BAG EPI PRN (15:58)
[2023-07-31] MEDS ORDERED: LIDOCAINE 2% MPF LOCAL 5 ML VIAL EPI PRN (15:58)
[2023-07-31] MEDS ORDERED: diphenhydrAMINE 50 MG/ML VIAL IV PRN (15:58)
[2023-07-31] MEDS ORDERED: SODIUM CHLORIDE 0.9% PF INJ 10 ML VIAL EPI STA (15:58)
[2023-07-31] MEDS ORDERED: ePHEDrine sulfate 50 MG/ML AMP IV PRN (15:58)
[2023-07-31] MEDS ORDERED: NALBUPHINE HCL INJ 10 MG/ML AMP IV PRN (15:58)
[2023-07-31] MEDS ORDERED: fentaNYL citrate PF 100 MCG/2 ML VIAL EPI PRN (15:58)
[2023-07-31] MEDS ORDERED: NALOXONE HCL 0.4 MG/1 ML VIAL/CARP IV PRN (15:58)
[2023-07-31] MEDS ORDERED: ROPIVACAINE 0.5% PF 5 MG/ML 20 ML VIAL EPI PRN (15:58)
[2023-07-31] MEDS ORDERED: BUPIVACAINE 0.25% PF 30 ML VIAL EPI STA (15:58)
[2023-07-31] MEDS ORDERED: SODIUM CHLORIDE 0.9% PF INJ 10 ML VIAL EPI PRN (15:58)
[2023-07-31] MEDS ORDERED: NALOXONE HCL 1 MG in SODIUM CHLORIDE 0.9% 1,000 ML IV PRN (15:58)
[2023-07-31] MEDS ORDERED: LIDOCAINE 2%/EPINEPHRINE 1:200,000 20 ML PF EPI STA (15:58)
[2023-07-31] MEDS ORDERED: BUPIVACAINE 0.25% PF 30 ML VIAL EPI PRN (15:58)
--- NOTE | 2023-07-31 15:58 | Anesthesiology Consultation ---
Date of Service July 31, 2023 Assessment & Plan (1) Encounter for pre-operative examination: Chart Review Chart Review: Patient NOT seen in Pre Admission Testing and Acceptable Risk for Labor Epidural Consults Requested none History Height/Weight Height: 5 ft 3 in Weight: 112.037 kg Allergies Allergy/AdvReac Type Severity Reaction Status Date / Time Sulfa (Sulfonamide Allergy Intermediate HIVES/VOMIT Verified 07/30/23 15:53 Antibiotics) ING Medications Home Medications Medication Instructions Recorded Confirmed Last Taken acetaminophen 500 mg capsule 1,000 mg PO Q6H PRN Pain 06/12/23 07/31/23 07/30/23 19:30 levalbuterol tartrate 45 2 inh inhalation Q6H PRN Wheezing 06/27/23 07/31/23 07/30/23 12:00 mcg/actuation aerosol inhaler diphenhydramine HCl 25 mg capsule 25 mg PO HS PRN Sleep 07/30/23 07/31/23 Un known (Benadryl) vits no.124-ferrous fum 1 tab PO DAILY 07/30/23 07/31/23 07/27/23 08:00 27 mg iron-folic acid 800 mcg tablet ( Vitamin) Active Medications Generic Name Dose Route Start Last Admin Trade Name Freq PRN Reason Stop Dose Admin Lactated Ringer's 1,000 mls @ 125 mls/hr 07/31/23 08:30 07/31/23 15:43 Lr IV 08/02/23 08:29 999 mls/hr .Q8H PRN Infusion L&D Protocol Protocol Penicillin G Potassium 3 mu/ 106 mls @ 100 mls/hr 07/31/23 11:30 07/31/23 13:23 Dextrose IV 08/10/23 11:29 100 mls/hr Q4H PRN Administration GBS(+) Until Delivery Oxytocin 30 units in 500 mls @ 12 mls/hr 07/31/23 09:44 07/31/23 15:30 Pitocin IV 08/02/23 09:43 0.72 units/hr .Q24H PRN 12 mls/hr Labor Induction/Augmentation Titration Protocol 0.72 UNITS/HR Past Medical History Medical History Anxiety and depression Asthma Degenerative disc disease lumbar Gestational diabetes History of COVID-19 09/2021- mild symptoms > resolved History of kidney stones passed without intervention Hx of Christensen's palsy Insomnia Migraine Mixed conductive and sensorineural hearing loss of left ear with restricted hearing of right ear Morbid obesity due to excess calories Post traumatic stress disorder Sensorineural hearing loss of both ears Spina bifida occulta Incidental finding noted on remote x-ray age 20s prior to back surgery Tachycardia HR 109 at [facility] [place] pulmonary visit 04/03/23. Per note, "Likely physiologic secondary to and possible anxiety. Patient denies any symptoms at this time. There is no evidence for a DVT or PE at this time. She has a pulse oximeter at home and will keep track of her heart rate. She will discuss this with her OB on Sunday." Per OB 04/09/23, "discussed possibility physiologic related" and to discuss with PCP. Temporomandibular joint disorder No locking x years Past Family History Family History Mother Cancer cervical Lung cancer Aunt Ovarian cancer Father Hypertension Allergies Aunt No problems noted. Grandfather Heart disease Grandfather (Paternal) Colorectal cancer Other Cervical cancer No family history of bleeding disorder Denies family history of Breast cancer Stroke Asthma Past Surgical History Surgical History H/O thyroidectomy 2018- r/t right thyroid nodule (benign) History of cholecystectomy History of hip surgery right hip 2017 and 2018 (Labral tear repair/tendon release) History of placement of ear tubes Ear tubes (2019) History of spinal fusion History of surgery Direct microlaryngoscopy (09/26/22): Grade view 1, MAC#3 at [facility] [place] teeth removed Social History Smoking Status: Current every day smoker tobacco type: cigarettes Smoking cigarettes per day: 1.5 packs a day Do You Dip or Chew Tobacco: No Hx Alcohol Use: No Hx Substance Use: No substance use type: does not use Physical Exam Vital Signs Last Vital Signs Temp 98.2 F 07/31/23 15:10 Pulse 91 H 07/31/23 15:27 Resp 16 07/31/23 14:32 BP 132/74 07/31/23 15:27 Testing Laboratory Results 07/31/23 09:00 Blood Type A Positive 07/31/23 09:00 Antibody Screen NEGATIVE 07/31/23 09:00 07/31/23 07/31/23 13:27 09:29 POC Glucose 89 86
[2023-07-31] MEDS ORDERED: NURSING L&D Epidural Breakthrough Pain Update ONE (19:53)
--- NOTE | 2023-07-31 21:24 | Anesthesia Procedure Note ---
Date of Service July 31, 2023 Anesthesia Epidural Re-Dose Vital Signs Temp Pulse Resp BP Pulse Ox 98.6 F 104 H 20 137/64 93 07/31/23 20:20 07/31/23 21:19 07/31/23 18:26 07/31/23 21:12 07/31/23 21:19 Notes Pain Intensity: 2 Dilatation (cm): 4.0 Effacement (%): 50 Called by nursing to evaluate epidural as the patient is having increased pain. The epidural was re-dosed with the following medications (all medications via epidural route) after negative aspiration of the epidural catheter for CSF/HEME. 0.125% Bupivacaine (8ml) with 100 mcg Fentanyl After Epidural Re-Dose Mental Status: alert / awake / arousable Pain: improving with treatment Airway Patency, RR, SpO2: stable & adequate BP & HR: stable & adequate
--- NOTE | 2023-07-31 21:35 | Labor Progress Brief Note ---
Date of Service July 31, 2023 Subjective having pain on left Assessment & Plan (1) Gestational diabetes mellitus (GDM) affecting : (2) Carrier of group B Streptococcus: Plan 33 yo G1 at 43 wga presents for late term IOL VSS Fetus cat 1 Labor - pit at 16, IUPC placed to guide ctx. Cervix still doesn't feel like quite have gotten pt into labor but will see A1GDM - bg q4 GBS+, pcn ordered epidural in place Admission and Anticipated Discharge Date Admission Date: July 31, 2023 Physical Exam Genitourinary: Manual OB Exam: + cervical dilation 4 cm, + cervical effacement 50% and + station -2 OB Exam Monitor Tracing: + external FHT monitor used, + intra-uterine pressure catheter used (placed to guide pitocin) and + category I (120/mod/+accel/-decel) Results & Data Vital Signs (Past 12 Hours) Vital Signs Temp Pulse Resp BP Pulse Ox 07/31/23 18:26 98.1 F 20 07/31/23 15:10 98.2 F 07/31/23 21:32 95 H 07/31/23 21:32 141/62 H 07/31/23 21:30 92 H 07/31/23 21:30 139/61 07/31/23 21:29 92 07/31/23 21:29 96 H 07/31/23 21:28 90 07/31/23 21:28 136/63 07/31/23 21:26 100 H 07/31/23 21:26 153/65 H 07/31/23 21:25 92 07/31/23 21:25 101 H 07/31/23 21:24 94 07/31/23 21:24 94 H 07/31/23 21:24 150/68 H 07/31/23 21:19 93 07/31/23 21:19 104 H 07/31/23 21:14 93 07/31/23 21:14 95 H 07/31/23 21:12 86 07/31/23 21:12 137/64 07/31/23 21:09 94 07/31/23 21:09 102 H 07/31/23 21:08 92 07/31/23 21:08 92 H 07/31/23 21:04 93 07/31/23 21:04 93 H 07/31/23 21:03 92 07/31/23 21:03 92 H 07/31/23 20:59 93 07/31/23 20:59 100 H 07/31/23 20:54 94 07/31/23 20:54 96 H 07/31/23 20:49 96 07/31/23 20:49 105 H 07/31/23 20:44 94 07/31/23 20:44 98 H 07/31/23 20:42 86 07/31/23 20:42 140/64 07/31/23 20:39 94 07/31/23 20:39 98 H 07/31/23 20:34 95 07/31/23 20:34 100 H 07/31/23 20:29 94 07/31/23 20:29 99 H 07/31/23 20:28 88 07/31/23 20:28 133/61 07/31/23 20:24 94 07/31/23 20:24 97 H 07/31/23 20:20 98.6 F 07/31/23 20:19 95 07/31/23 20:19 102 H 07/31/23 20:14 94 07/31/23 20:14 91 H 07/31/23 20:13 92 07/31/23 20:12 89 07/31/23 20:13 94 H 07/31/23 20:12 136/63 07/31/23 20:09 94 07/31/23 20:09 90 07/31/23 20:04 94 07/31/23 20:04 94 H 07/31/23 19:59 95 07/31/23 19:59 103 H 07/31/23 19:56 95 H 07/31/23 19:56 139/70 07/31/23 19:54 95 07/31/23 19:54 93 H 07/31/23 19:49 94 07/31/23 19:49 91 H 07/31/23 19:44 95 07/31/23 19:44 97 H 07/31/23 19:41 88 07/31/23 19:41 120/65 07/31/23 19:39 95 07/31/23 19:39 89 07/31/23 19:34 95 07/31/23 19:34 99 H 07/31/23 19:29 95 07/31/23 19:29 96 H 07/31/23 19:27 93 H 07/31/23 19:27 122/63 07/31/23 19:24 95 07/31/23 19:24 96 H 07/31/23 19:19 95 07/31/23 19:19 90 07/31/23 19:14 95 07/31/23 19:14 90 07/31/23 19:12 85 07/31/23 19:12 124/55 L 07/31/23 19:09 95 07/31/23 19:09 93 H 07/31/23 19:04 96 07/31/23 19:04 103 H 07/31/23 18:59 94 07/31/23 18:59 95 H 07/31/23 18:57 90 07/31/23 18:57 134/63 07/31/23 18:54 94 07/31/23 18:54 92 H 07/31/23 18:49 95 07/31/23 18:49 102 H 07/31/23 18:44 95 07/31/23 18:44 98 H 07/31/23 18:43 83 07/31/23 18:43 131/59 L 07/31/23 18:39 94 07/31/23 18:39 91 H 07/31/23 18:34 94 07/31/23 18:34 94 H 07/31/23 18:34 93 07/31/23 18:34 99 H 07/31/23 18:29 95 07/31/23 18:29 89 07/31/23 18:26 94 H 07/31/23 18:26 139/60 07/31/23 18:24 95 07/31/23 18:24 95 H 07/31/23 18:19 96 07/31/23 18:19 91 H 07/31/23 18:14 96 07/31/23 18:14 105 H 07/31/23 18:11 83 07/31/23 18:11 127/62 07/31/23 18:09 96 07/31/23 18:09 103 H 07/31/23 18:04 95 07/31/23 18:04 91 H 07/31/23 17:59 96 07/31/23 17:59 90 07/31/23 17:57 90 07/31/23 17:57 125/57 L 07/31/23 17:54 96 07/31/23 17:54 89 07/31/23 17:49 96 07/31/23 17:49 86 07/31/23 17:48 93 H 07/31/23 17:48 138/61 07/31/23 17:44 95 07/31/23 17:44 94 H 07/31/23 17:39 96 07/31/23 17:39 94 H 07/31/23 17:34 96 07/31/23 17:34 93 H 20 07/31/23 17:29 96 07/31/23 17:29 91 H 07/31/23 17:28 84 07/31/23 17:28 140/64 07/31/23 17:24 94 07/31/23 17:24 91 H 07/31/23 17:19 95 07/31/23 17:19 90 07/31/23 17:14 95 07/31/23 17:14 95 H 07/31/23 17:12 91 H 07/31/23 17:12 128/60 07/31/23 17:09 95 07/31/23 17:09 96 H 07/31/23 17:04 94 07/31/23 17:04 86 07/31/23 16:59 95 07/31/23 16:59 106 H 07/31/23 16:56 90 07/31/23 16:56 142/66 H 07/31/23 16:55 90 07/31/23 16:55 95 H 07/31/23 16:54 91 07/31/23 16:54 89 07/31/23 16:49 90 07/31/23 16:49 88 07/31/23 16:44 91 07/31/23 16:44 89 07/31/23 16:44 92 07/31/23 16:44 97 H 07/31/23 16:42 100 H 07/31/23 16:42 132/62 07/31/23 16:30 98.2 F 20 07/31/23 16:39 94 07/31/23 16:39 107 H 07/31/23 16:38 92 07/31/23 16:38 92 H 07/31/23 16:34 93 07/31/23 16:34 103 H 07/31/23 16:29 93 09/05/23 16:29 102 H 07/31/23 16:26 100 H 07/31/23 16:26 131/59 L 07/31/23 16:24 95 07/31/23 16:24 104 H 07/31/23 16:24 106 H 07/31/23 16:24 145/58 H 07/31/23 16:22 96 H 07/31/23 16:22 143/64 H 07/31/23 16:19 95 07/31/23 16:19 104 H 07/31/23 16:15 99 H 07/31/23 16:15 141/76 H 07/31/23 16:14 95 07/31/23 16:15 94 07/31/23 16:14 95 H 07/31/23 16:15 93 H 07/31/23 16:09 95 07/31/23 16:09 95 H 07/31/23 16:09 153/69 H 07/31/23 15:27 91 H 07/31/23 15:27 132/74 07/31/23 14:32 98.4 F 96 H 16 07/31/23 14:32 137/73 07/31/23 13:27 100 H 07/31/23 13:27 137/65 07/31/23 12:27 94 H 07/31/23 12:27 125/59 L 07/31/23 11:26 98.6 F 91 H 20 07/31/23 11:26 119/60 07/31/23 11:12 87 07/31/23 11:12 140/69 07/31/23 10:57 97 H 07/31/23 10:57 136/60 07/31/23 10:42 92 H 07/31/23 10:42 137/74 07/31/23 10:25 93 H 20 07/31/23 10:25 130/67 Coding Level of Care Code None Diagnoses Gestational diabetes mellitus (GDM) affecting O24.419 Carrier of group B Streptococcus Z22.330
[2023-08-01] MEDS: PENICILLIN G POTASSIUM 3 MU in DEXTROSE 5% 100 ML IV PRN (01:46)
[2023-08-01] MEDS ORDERED: ONDANSETRON INJ 2 MG/ML 2 ML VIAL IV STA (02:35)
[2023-08-01] MEDS ORDERED: ONDANSETRON INJ 2 MG/ML 2 ML VIAL ONE ×2 (02:37→03:13)
[2023-08-01] MEDS ORDERED: AZITHROMYCIN 500 MG in DEXTROSE 5% 250 ML IV STA (02:49)
--- NOTE | 2023-08-01 02:58 | Labor Progress Brief Note ---
Date of Service August 01, 2023 Subjective having pain on left again Assessment & Plan (1) Gestational diabetes mellitus (GDM) affecting : (2) Carrier of group B Streptococcus: Plan 33 yo G1 at 43 wga presents for late term IOL VSS Fetus cat 1 Labor - pt having significant pain again despite prior redoses. Cervix unchanged from prior exam, though again slightly softer than what it was earlier in the day. Pit is at 22, MVUs have had periods of adequacy. Has been about 12 hours since arom without significant change. Discussed redose and continued induction as well as CS given difficulty with getting pt to remain comfortable, discussed cannot guarantee a vaginal delivery if does desire to redose as well. Pt becoming frustrated with pain and duration of induction without significant progress understandably. Discussed risks and benefits of continued induction vs CS. Discussed indications, risks, benefits, alternatives with risks including infection, bleeding, injury to adjacent structures (bowel, bladder, ureters, blood vessels, nerves, baby), possible need for blood transfusion and/or life saving hysterectomy, VTE. After consideration, pt desires to proceed with CS. Consent reviewed in detail w/ pt and signed after all questions answered to her satisfaction. Admission and Anticipated Discharge Date Admission Date: July 31, 2023 Physical Exam Genitourinary: Manual OB Exam: + cervical dilation 4 cm, + cervical effacement 50% and + station -2 OB Exam Monitor Tracing: + external FHT monitor used, + intra-uterine pressure catheter used and + category I (120/mod/+accel/-decel) Results & Data Vital Signs (Past 12 Hours) Vital Signs Temp Pulse Resp BP Pulse Ox 07/31/23 18:26 98.1 F 20 07/31/23 15:10 98.2 F 08/01/23 02:49 123 H 91 08/01/23 02:44 129 H 94 08/01/23 02:41 117 H 146/72 H 08/01/23 02:39 119 H 93 08/01/23 02:34 114 H 95 08/01/23 02:29 110 H 95 08/01/23 02:26 106 H 146/70 H 08/01/23 02:24 109 H 95 08/01/23 02:19 104 H 93 08/01/23 02:14 99 H 93 08/01/23 02:11 103 H 122/68 08/01/23 02:09 104 H 93 08/01/23 02:04 111 H 95 08/01/23 01:30 20 08/01/23 01:30 98.4 F 20 08/01/23 01:59 106 H 93 08/01/23 01:54 97 H 136/66 92 08/01/23 01:49 103 H 94 08/01/23 01:44 98 H 92 08/01/23 01:39 98 H 95 08/01/23 01:40 96 H 122/61 08/01/23 01:34 104 H 94 08/01/23 01:29 102 H 94 08/01/23 01:24 97 H 93 08/01/23 01:19 107 H 95 08/01/23 01:14 91 H 94 08/01/23 01:11 90 123/63 08/01/23 01:09 99 H 94 08/01/23 01:04 90 92 08/01/23 00:59 96 H 95 08/01/23 00:56 97 H 134/61 08/01/23 00:54 95 H 95 08/01/23 00:49 91 H 93 08/01/23 00:44 99 H 94 08/01/23 00:40 102 H 132/60 08/01/23 00:39 102 H 95 08/01/23 00:34 99 H 94 08/01/23 00:29 91 H 92 08/01/23 00:26 91 H 131/61 08/01/23 00:24 100 H 94 08/01/23 00:19 93 H 93 08/01/23 00:14 88 94 08/01/23 00:11 89 131/59 L 08/01/23 00:09 89 94 08/01/23 00:04 90 93 07/31/23 23:59 93 07/31/23 23:59 91 H 07/31/23 23:56 90 07/31/23 23:56 125/58 L 07/31/23 23:54 93 07/31/23 23:54 97 H 07/31/23 23:49 94 07/31/23 23:49 109 H 07/31/23 23:30 98.6 F 07/31/23 23:44 92 07/31/23 23:44 91 H 07/31/23 23:39 92 07/31/23 23:39 93 H 09/05/23 23:39 135/58 L 07/31/23 23:34 93 07/31/23 23:34 94 H 07/31/23 23:29 93 07/31/23 23:29 105 H 07/31/23 23:24 92 07/31/23 23:24 96 H 07/31/23 23:24 125/61 07/31/23 23:19 93 07/31/23 23:19 93 H 07/31/23 23:14 94 07/31/23 23:14 106 H 07/31/23 23:09 93 07/31/23 23:09 95 H 07/31/23 23:10 96 H 07/31/23 23:10 125/58 L 07/31/23 23:04 93 07/31/23 23:04 99 H 07/31/23 22:59 94 07/31/23 22:59 98 H 07/31/23 22:55 92 H 07/31/23 22:55 134/62 07/31/23 22:54 93 07/31/23 22:54 103 H 07/31/23 22:49 91 07/31/23 22:49 99 H 07/31/23 22:44 92 07/31/23 22:44 95 H 07/31/23 22:40 98 H 07/31/23 22:40 140/65 07/31/23 22:39 92 07/31/23 22:39 93 H 07/31/23 22:34 92 07/31/23 22:34 96 H 07/31/23 22:29 92 07/31/23 22:29 100 H 07/31/23 22:24 92 07/31/23 22:24 95 H 07/31/23 22:25 97 H 07/31/23 22:25 155/65 H 07/31/23 22:19 92 07/31/23 22:19 92 H 07/31/23 22:14 93 07/31/23 22:14 102 H 07/31/23 22:11 109 H 07/31/23 22:11 164/63 H 07/31/23 22:09 92 07/31/23 22:09 94 H 07/31/23 22:04 92 07/31/23 22:04 92 H 07/31/23 21:59 93 07/31/23 21:59 116 H 07/31/23 21:54 92 07/31/23 21:54 93 H 07/31/23 21:54 132/85 07/31/23 21:49 94 07/31/23 21:49 89 07/31/23 21:44 92 07/31/23 21:44 92 H 07/31/23 21:40 18 07/31/23 21:40 99.3 F 18 07/31/23 21:39 93 07/31/23 21:39 98 H 07/31/23 21:38 98 H 07/31/23 21:38 139/63 07/31/23 21:36 90 07/31/23 21:36 134/60 07/31/23 21:34 94 07/31/23 21:34 99 H 07/31/23 21:34 149/65 H 07/31/23 21:32 95 H 07/31/23 21:32 141/62 H 07/31/23 21:30 92 H 07/31/23 21:30 139/61 07/31/23 21:29 92 07/31/23 21:29 96 H 07/31/23 21:28 90 07/31/23 21:28 136/63 07/31/23 21:26 100 H 07/31/23 21:26 153/65 H 07/31/23 21:25 92 07/31/23 21:25 101 H 07/31/23 21:24 94 07/31/23 21:24 94 H 07/31/23 21:24 150/68 H 07/31/23 21:19 93 07/31/23 21:19 104 H 07/31/23 21:14 93 07/31/23 21:14 95 H 07/31/23 21:12 86 07/31/23 21:12 137/64 07/31/23 21:09 94 07/31/23 21:09 102 H 07/31/23 21:08 92 07/31/23 21:08 92 H 07/31/23 21:04 93 07/31/23 21:04 93 H 07/31/23 21:03 92 07/31/23 21:03 92 H 07/31/23 20:59 93 07/31/23 20:59 100 H 07/31/23 20:54 94 07/31/23 20:54 96 H 07/31/23 20:49 96 07/31/23 20:49 105 H 07/31/23 20:44 94 07/31/23 20:44 98 H 07/31/23 20:42 86 07/31/23 20:42 140/64 07/31/23 20:39 94 07/31/23 20:39 98 H 07/31/23 20:34 95 07/31/23 20:34 100 H 07/31/23 20:29 94 07/31/23 20:29 99 H 07/31/23 20:28 88 07/31/23 20:28 133/61 07/31/23 20:24 94 07/31/23 20:24 97 H 07/31/23 20:20 98.6 F 07/31/23 20:19 95 07/31/23 20:19 102 H 07/31/23 20:14 94 07/31/23 20:14 91 H 07/31/23 20:13 92 07/31/23 20:12 89 07/31/23 20:13 94 H 07/31/23 20:12 136/63 07/31/23 20:09 94 07/31/23 20:09 90 07/31/23 20:04 94 07/31/23 20:04 94 H 07/31/23 19:59 95 07/31/23 19:59 103 H 07/31/23 19:56 95 H 07/31/23 19:56 139/70 07/31/23 19:54 95 07/31/23 19:54 93 H 07/31/23 19:49 94 07/31/23 19:49 91 H 07/31/23 19:44 95 07/31/23 19:44 97 H 07/31/23 19:41 88 07/31/23 19:41 120/65 07/31/23 19:39 95 07/31/23 19:39 89 07/31/23 19:34 95 07/31/23 19:34 99 H 07/31/23 19:29 95 07/31/23 19:29 96 H 07/31/23 19:27 93 H 07/31/23 19:27 122/63 07/31/23 19:24 95 09/05/23 19:24 96 H 07/31/23 19:19 95 07/31/23 19:19 90 07/31/23 19:14 95 07/31/23 19:14 90 07/31/23 19:12 85 07/31/23 19:12 124/55 L 07/31/23 19:09 95 07/31/23 19:09 93 H 07/31/23 19:04 96 07/31/23 19:04 103 H 07/31/23 18:59 94 07/31/23 18:59 95 H 07/31/23 18:57 90 07/31/23 18:57 134/63 07/31/23 18:54 94 07/31/23 18:54 92 H 07/31/23 18:49 95 07/31/23 18:49 102 H 07/31/23 18:44 95 07/31/23 18:44 98 H 07/31/23 18:43 83 07/31/23 18:43 131/59 L 07/31/23 18:39 94 07/31/23 18:39 91 H 07/31/23 18:34 94 07/31/23 18:34 94 H 07/31/23 18:34 93 07/31/23 18:34 99 H 07/31/23 18:29 95 07/31/23 18:29 89 07/31/23 18:26 94 H 07/31/23 18:26 139/60 07/31/23 18:24 95 07/31/23 18:24 95 H 07/31/23 18:19 96 07/31/23 18:19 91 H 07/31/23 18:14 96 07/31/23 18:14 105 H 07/31/23 18:11 83 07/31/23 18:11 127/62 07/31/23 18:09 96 07/31/23 18:09 103 H 07/31/23 18:04 95 07/31/23 18:04 91 H 07/31/23 17:59 96 07/31/23 17:59 90 07/31/23 17:57 90 07/31/23 17:57 125/57 L 07/31/23 17:54 96 07/31/23 17:54 89 07/31/23 17:49 96 07/31/23 17:49 86 07/31/23 17:48 93 H 07/31/23 17:48 138/61 07/31/23 17:44 95 07/31/23 17:44 94 H 07/31/23 17:39 96 07/31/23 17:39 94 H 07/31/23 17:34 96 07/31/23 17:34 93 H 20 07/31/23 17:29 96 07/31/23 17:29 91 H 07/31/23 17:28 84 07/31/23 17:28 140/64 07/31/23 17:24 94 07/31/23 17:24 91 H 07/31/23 17:19 95 07/31/23 17:19 90 07/31/23 17:14 95 07/31/23 17:14 95 H 07/31/23 17:12 91 H 07/31/23 17:12 128/60 07/31/23 17:09 95 07/31/23 17:09 96 H 07/31/23 17:04 94 07/31/23 17:04 86 07/31/23 16:59 95 07/31/23 16:59 106 H 07/31/23 16:56 90 07/31/23 16:56 142/66 H 07/31/23 16:55 90 07/31/23 16:55 95 H 07/31/23 16:54 91 07/31/23 16:54 89 07/31/23 16:49 90 07/31/23 16:49 88 07/31/23 16:44 91 07/31/23 16:44 89 07/31/23 16:44 92 07/31/23 16:44 97 H 07/31/23 16:42 100 H 07/31/23 16:42 132/62 07/31/23 16:30 98.2 F 20 07/31/23 16:39 94 07/31/23 16:39 107 H 07/31/23 16:38 92 07/31/23 16:38 92 H 07/31/23 16:34 93 07/31/23 16:34 103 H 07/31/23 16:29 93 07/31/23 16:29 102 H 07/31/23 16:26 100 H 07/31/23 16:26 131/59 L 07/31/23 16:24 95 07/31/23 16:24 104 H 07/31/23 16:24 106 H 07/31/23 16:24 145/58 H 07/31/23 16:22 96 H 07/31/23 16:22 143/64 H 07/31/23 16:19 95 07/31/23 16:19 104 H 07/31/23 16:15 99 H 07/31/23 16:15 141/76 H 07/31/23 16:14 95 07/31/23 16:15 94 07/31/23 16:14 95 H 07/31/23 16:15 93 H 07/31/23 16:09 95 07/31/23 16:09 95 H 07/31/23 16:09 153/69 H 07/31/23 15:27 91 H 07/31/23 15:27 132/74 Coding Level of Care Code None Diagnoses Gestational diabetes mellitus (GDM) affecting O24.419 Carrier of group B Streptococcus Z22.330
[2023-08-01] MEDS ORDERED: LIDOCAINE 2%/EPINEPHRINE 1:200,000 20 ML PF ONE (03:12)
[2023-08-01] MEDS ORDERED: MoRPHine SULFATE PF 1 MG/ML 10 ML AMP/VIAL ONE (03:13)
[2023-08-01] MEDS ORDERED: OXYTOCIN 10 UNITS/ML VIAL ONE (03:13)
[2023-08-01] MEDS ORDERED: ONDANSETRON INJ 2 MG/ML 2 ML VIAL IV PRN ×2 (04:40→22:40)
[2023-08-01] MEDS ORDERED: MoRPHine SULFATE PF 1 MG/ML 10 ML AMP/VIAL EPI ONE (04:40)
[2023-08-01] MEDS ORDERED: NALOXONE HCL 0.4 MG/1 ML VIAL/CARP IV PRN (04:40)
[2023-08-01] MEDS ORDERED: ACETAMINOPHEN 1,000 MG/100 ML VIAL IV PRN (04:40)
[2023-08-01] MEDS ORDERED: KETOROLAC 30 MG/ML VIAL IV PRN ×2 (04:40→22:40)
[2023-08-01] MEDS ORDERED: HYDROmorphone INJ 0.5 MG/0.5 ML SYR IV PRN (04:40)
[2023-08-01] MEDS ORDERED: PROMETHAZINE HCL 25 MG in SODIUM CHLORIDE 0.9% 50 ML IV PRN ×2 (04:40→22:40)
[2023-08-01] MEDS ORDERED: ePHEDrine sulfate 50 MG/ML AMP IV PRN (04:40)
[2023-08-01] MEDS ORDERED: diphenhydrAMINE 50 MG/ML VIAL IV PRN ×2 (04:40→22:40)
[2023-08-01] MEDS ORDERED: NALOXONE HCL 1 MG in SODIUM CHLORIDE 0.9% 1,000 ML IV PRN (04:40)
[2023-08-01] MEDS ORDERED: NALBUPHINE HCL INJ 10 MG/ML AMP IV PRN (04:40)
[2023-08-01] MEDS ORDERED: NALOXONE HCL 0.08 MG in SYRINGE 1.8 ML IV PRN (04:40)
[2023-08-01] MEDS ORDERED: LACTATED RINGER'S 500 ML IV PRN (04:40)
--- NOTE | 2023-08-01 04:41 | Anesthesia Procedure Note ---
Date of Service August 01, 2023 Anesthesia Post Epidural Note Vital Signs Vital Signs: Temp Pulse Resp BP Pulse Ox 98.4 F 108 H 20 111/55 L 89 L 08/01/23 01:30 08/01/23 04:40 08/01/23 01:30 08/01/23 04:36 08/01/23 04:40 Pain Intensity Abdomen: Pain Intensity: 8 Notes Mental Status: alert / awake / arousable and participated in evaluation Nausea / Vomiting: adequately controlled Pain: adequately controlled Airway Patency, RR, SpO2: stable & adequate BP & HR: stable & adequate Hydration State: stable & adequate Neuraxial Anesthesia: was administered and sensory block is resolving Anesthetic Complications: no major complications apparent and Pt Satisfied with anesthetic care Epidural: Removed without complications and With tip intact
--- NOTE | 2023-08-01 04:42 | Anesthesiology Progress Note ---
Date of Service August 01, 2023 Anesthesia Post Procedure Vital Signs Vital Signs: Temp Pulse Resp BP Pulse Ox 07/31/23 18:26 98.1 F 20 07/31/23 15:10 98.2 F 07/31/23 07:55 97.9 F 114 H 20 123/72 08/01/23 04:40 108 H 89 L 08/01/23 04:38 118 H 93 08/01/23 04:36 111 H 111/55 L 08/01/23 04:34 123 H 107/54 L 08/01/23 04:33 127 H 94 08/01/23 03:14 103 H 90 08/01/23 03:15 103 H 88 L 08/01/23 03:09 117 H 91 08/01/23 03:04 110 H 91 08/01/23 02:59 118 H 91 08/01/23 02:55 113 H 131/79 08/01/23 02:54 116 H 92 08/01/23 02:49 123 H 91 08/01/23 02:44 129 H 94 08/01/23 02:41 117 H 146/72 H 08/01/23 02:39 119 H 93 08/01/23 02:34 114 H 95 08/01/23 02:29 110 H 95 08/01/23 02:26 106 H 146/70 H 08/01/23 02:24 109 H 95 08/01/23 02:19 104 H 93 08/01/23 02:14 99 H 93 08/01/23 02:11 103 H 122/68 08/01/23 02:09 104 H 93 08/01/23 02:04 111 H 95 08/01/23 01:30 20 08/01/23 01:30 98.4 F 20 08/01/23 01:59 106 H 93 08/01/23 01:54 97 H 136/66 92 08/01/23 01:49 103 H 94 08/01/23 01:44 98 H 92 08/01/23 01:39 98 H 95 08/01/23 01:40 96 H 122/61 08/01/23 01:34 104 H 94 08/01/23 01:29 102 H 94 08/01/23 01:24 97 H 93 08/01/23 01:19 107 H 95 08/01/23 01:14 91 H 94 08/01/23 01:11 90 123/63 08/01/23 01:09 99 H 94 08/01/23 01:04 90 92 08/01/23 00:59 96 H 95 08/01/23 00:56 97 H 134/61 08/01/23 00:54 95 H 95 08/01/23 00:49 91 H 93 08/01/23 00:44 99 H 94 08/01/23 00:40 102 H 132/60 08/01/23 00:39 102 H 95 08/01/23 00:34 99 H 94 08/01/23 00:29 91 H 92 08/01/23 00:26 91 H 131/61 08/01/23 00:24 100 H 94 08/01/23 00:19 93 H 93 08/01/23 00:14 88 94 08/01/23 00:11 89 131/59 L 08/01/23 00:09 89 94 08/01/23 00:04 90 93 07/31/23 23:59 93 07/31/23 23:59 91 H 07/31/23 23:56 90 07/31/23 23:56 125/58 L 07/31/23 23:54 93 07/31/23 23:54 97 H 07/31/23 23:49 94 07/31/23 23:49 109 H 07/31/23 23:30 98.6 F 07/31/23 23:44 92 07/31/23 23:44 91 H 07/31/23 23:39 92 07/31/23 23:39 93 H 07/31/23 23:39 135/58 L 07/31/23 23:34 93 07/31/23 23:34 94 H 07/31/23 23:29 93 07/31/23 23:29 105 H 07/31/23 23:24 92 07/31/23 23:24 96 H 07/31/23 23:24 125/61 07/31/23 23:19 93 07/31/23 23:19 93 H 07/31/23 23:14 94 07/31/23 23:14 106 H 07/31/23 23:09 93 07/31/23 23:09 95 H 07/31/23 23:10 96 H 07/31/23 23:10 125/58 L 07/31/23 23:04 93 07/31/23 23:04 99 H 07/31/23 22:59 94 07/31/23 22:59 98 H 07/31/23 22:55 92 H 07/31/23 22:55 134/62 07/31/23 22:54 93 07/31/23 22:54 103 H 07/31/23 22:49 91 07/31/23 22:49 99 H 07/31/23 22:44 92 07/31/23 22:44 95 H 07/31/23 22:40 98 H 07/31/23 22:40 140/65 07/31/23 22:39 92 07/31/23 22:39 93 H 07/31/23 22:34 92 07/31/23 22:34 96 H 07/31/23 22:29 92 07/31/23 22:29 100 H 07/31/23 22:24 92 07/31/23 22:24 95 H 07/31/23 22:25 97 H 07/31/23 22:25 155/65 H 07/31/23 22:19 92 07/31/23 22:19 92 H 07/31/23 22:14 93 07/31/23 22:14 102 H 07/31/23 22:11 109 H 07/31/23 22:11 164/63 H 07/31/23 22:09 92 07/31/23 22:09 94 H 07/31/23 22:04 92 07/31/23 22:04 92 H 07/31/23 21:59 93 07/31/23 21:59 116 H 07/31/23 21:54 92 07/31/23 21:54 93 H 07/31/23 21:54 132/85 07/31/23 21:49 94 07/31/23 21:49 89 07/31/23 21:44 92 07/31/23 21:44 92 H 07/31/23 21:40 18 07/31/23 21:40 99.3 F 18 07/31/23 21:39 93 07/31/23 21:39 98 H 07/31/23 21:38 98 H 07/31/23 21:38 139/63 07/31/23 21:36 90 07/31/23 21:36 134/60 09/05/23 21:34 94 07/31/23 21:34 99 H 07/31/23 21:34 149/65 H 07/31/23 21:32 95 H 07/31/23 21:32 141/62 H 07/31/23 21:30 92 H 07/31/23 21:30 139/61 07/31/23 21:29 92 07/31/23 21:29 96 H 07/31/23 21:28 90 07/31/23 21:28 136/63 07/31/23 21:26 100 H 07/31/23 21:26 153/65 H 07/31/23 21:25 92 07/31/23 21:25 101 H 07/31/23 21:24 94 07/31/23 21:24 94 H 07/31/23 21:24 150/68 H 07/31/23 21:19 93 07/31/23 21:19 104 H 07/31/23 21:14 93 07/31/23 21:14 95 H 07/31/23 21:12 86 07/31/23 21:12 137/64 07/31/23 21:09 94 07/31/23 21:09 102 H 07/31/23 21:08 92 07/31/23 21:08 92 H 07/31/23 21:04 93 07/31/23 21:04 93 H 07/31/23 21:03 92 07/31/23 21:03 92 H 07/31/23 20:59 93 07/31/23 20:59 100 H 07/31/23 20:54 94 07/31/23 20:54 96 H 07/31/23 20:49 96 07/31/23 20:49 105 H 07/31/23 20:44 94 07/31/23 20:44 98 H 07/31/23 20:42 86 07/31/23 20:42 140/64 07/31/23 20:39 94 07/31/23 20:39 98 H 07/31/23 20:34 95 07/31/23 20:34 100 H 07/31/23 20:29 94 07/31/23 20:29 99 H 07/31/23 20:28 88 07/31/23 20:28 133/61 07/31/23 20:24 94 07/31/23 20:24 97 H 07/31/23 20:20 98.6 F 07/31/23 20:19 95 07/31/23 20:19 102 H 07/31/23 20:14 94 07/31/23 20:14 91 H 07/31/23 20:13 92 07/31/23 20:12 89 07/31/23 20:13 94 H 07/31/23 20:12 136/63 07/31/23 20:09 94 07/31/23 20:09 90 07/31/23 20:04 94 07/31/23 20:04 94 H 07/31/23 19:59 95 07/31/23 19:59 103 H 07/31/23 19:56 95 H 07/31/23 19:56 139/70 07/31/23 19:54 95 07/31/23 19:54 93 H 07/31/23 19:49 94 07/31/23 19:49 91 H 07/31/23 19:44 95 07/31/23 19:44 97 H 07/31/23 19:41 88 07/31/23 19:41 120/65 07/31/23 19:39 95 07/31/23 19:39 89 07/31/23 19:34 95 07/31/23 19:34 99 H 07/31/23 19:29 95 07/31/23 19:29 96 H 07/31/23 19:27 93 H 07/31/23 19:27 122/63 07/31/23 19:24 95 07/31/23 19:24 96 H 07/31/23 19:19 95 07/31/23 19:19 90 07/31/23 19:14 95 07/31/23 19:14 90 07/31/23 19:12 85 07/31/23 19:12 124/55 L 07/31/23 19:09 95 07/31/23 19:09 93 H 07/31/23 19:04 96 07/31/23 19:04 103 H 07/31/23 18:59 94 07/31/23 18:59 95 H 07/31/23 18:57 90 07/31/23 18:57 134/63 07/31/23 18:54 94 07/31/23 18:54 92 H 07/31/23 18:49 95 07/31/23 18:49 102 H 07/31/23 18:44 95 07/31/23 18:44 98 H 07/31/23 18:43 83 07/31/23 18:43 131/59 L 07/31/23 18:39 94 07/31/23 18:39 91 H 07/31/23 18:34 94 07/31/23 18:34 94 H 07/31/23 18:34 93 07/31/23 18:34 99 H 07/31/23 18:29 95 07/31/23 18:29 89 07/31/23 18:26 94 H 07/31/23 18:26 139/60 07/31/23 18:24 95 07/31/23 18:24 95 H 07/31/23 18:19 96 07/31/23 18:19 91 H 07/31/23 18:14 96 07/31/23 18:14 105 H 07/31/23 18:11 83 07/31/23 18:11 127/62 07/31/23 18:09 96 07/31/23 18:09 103 H 07/31/23 18:04 95 07/31/23 18:04 91 H 07/31/23 17:59 96 07/31/23 17:59 90 07/31/23 17:57 90 07/31/23 17:57 125/57 L 07/31/23 17:54 96 07/31/23 17:54 89 07/31/23 17:49 96 07/31/23 17:49 86 07/31/23 17:48 93 H 07/31/23 17:48 138/61 07/31/23 17:44 95 07/31/23 17:44 94 H 07/31/23 17:39 96 07/31/23 17:39 94 H 07/31/23 17:34 96 07/31/23 17:34 93 H 20 07/31/23 17:29 96 07/31/23 17:29 91 H 07/31/23 17:28 84 07/31/23 17:28 140/64 07/31/23 17:24 94 07/31/23 17:24 91 H 07/31/23 17:19 95 07/31/23 17:19 90 07/31/23 17:14 95 07/31/23 17:14 95 H 07/31/23 17:12 91 H 07/31/23 17:12 128/60 07/31/23 17:09 95 07/31/23 17:09 96 H 07/31/23 17:04 94 07/31/23 17:04 86 07/31/23 16:59 95 07/31/23 16:59 106 H 07/31/23 16:56 90 07/31/23 16:56 142/66 H 07/31/23 16:55 90 07/31/23 16:55 95 H 07/31/23 16:54 91 07/31/23 16:54 89 07/31/23 16:49 90 07/31/23 16:49 88 07/31/23 16:44 91 07/31/23 16:44 89 07/31/23 16:44 92 07/31/23 16:44 97 H 07/31/23 16:42 100 H 07/31/23 16:42 132/62 07/31/23 16:30 98.2 F 20 07/31/23 16:39 94 07/31/23 16:39 107 H 07/31/23 16:38 92 07/31/23 16:38 92 H 07/31/23 16:34 93 07/31/23 16:34 103 H 07/31/23 16:29 93 07/31/23 16:29 102 H 07/31/23 16:26 100 H 07/31/23 16:26 131/59 L 07/31/23 16:24 95 07/31/23 16:24 104 H 07/31/23 16:24 106 H 07/31/23 16:24 145/58 H 07/31/23 16:22 96 H 07/31/23 16:22 143/64 H 07/31/23 16:19 95 07/31/23 16:19 104 H 07/31/23 16:15 99 H 07/31/23 16:15 141/76 H 07/31/23 16:14 95 07/31/23 16:15 94 07/31/23 16:14 95 H 07/31/23 16:15 93 H 07/31/23 16:09 95 07/31/23 16:09 95 H 07/31/23 16:09 153/69 H 07/31/23 15:27 91 H 07/31/23 15:27 132/74 07/31/23 14:32 98.4 F 96 H 16 07/31/23 14:32 137/73 07/31/23 13:27 100 H 07/31/23 13:27 137/65 07/31/23 12:27 94 H 07/31/23 12:27 125/59 L 07/31/23 11:26 98.6 F 91 H 20 07/31/23 11:26 119/60 07/31/23 11:12 87 07/31/23 11:12 140/69 07/31/23 10:57 97 H 07/31/23 10:57 136/60 07/31/23 10:42 92 H 07/31/23 10:42 137/74 07/31/23 10:25 93 H 20 07/31/23 10:25 130/67 07/31/23 07:42 97.9 F 114 H 20 123/72 Pain Intensity Abdomen: Pain Intensity: 8 Transfer of Care Handoff Completed per policy Notes Mental Status: alert / awake / arousable and participated in evaluation Patient Amnestic to Procedure: No Nausea / Vomiting: adequately controlled Pain: adequately controlled Airway Patency, RR, SpO2: stable & adequate BP & HR: stable & adequate Hydration State: stable & adequate Neuraxial Anesthesia: was administered and sensory block is resolving Anesthetic Complications: no major complications apparent and Pt Satisfied with anesthetic care
[2023-08-01] MEDS ORDERED: SODIUM CHLORIDE 0.9% 1,000 ML IV SCH (04:45)
[2023-08-01] MEDS ORDERED: DC INTRASPINAL MORPHINE SCH (04:45)
[2023-08-01] MEDS ORDERED: NO NARCOTICS OR SEDATIVES SCH (04:45)
--- NOTE | 2023-08-01 04:46 | Operative Report ---
PG Post Operative Report Pre & Post Diagnosis Operation Date: 08/01/23 03:30 Pre-Op Diagnosis: Single intrauterine at 41 1/7 wga, IUI, A1GDM, Asthma, BMI 40, Failed Induction. Post-Op Diagnosis: Single intrauterine at 41 1/7 wga, IUI, A1GDM, Asthma, BMI 40, Failed Induction, Delivered I identified the patient and participated in the time-out.: Yes Procedure Operation Date: 08/01/23 03:30 Actual Procedures p Primary Low Transverse Section in . [facility] at 0346(Bilateral) - Aracelis Braxton MD Surgeon Aracelis Braxton MD Educational Assistant Teacher Forr, RN Estimated Blood Loss 800 Findings Consistent with Post-Op Diagnosis Normal appearing uterus, bilateral fallopian tubes and ovaries. Viable female infant with APGARs of 8 and 9. head was noted to be asynclitic Fluids 1L crystalloid, UOP 50cc clear urine by pereira (emptied before OR) Specimens Cord blood, placenta Drains Pereira draining clear urine Anesthesia Type Spinal Complications none Disposition Accompanied Patient To Recovery: Yes Disposition: L&D Indications 33 yo G1 at 41 1/7 wga presented for late term IOL yesterday. Pereira bulb had been placed prior to arrival and was still in on admission. Penicillin was started for GBS+ status, pitocin was started for induction. Upon pereira bulb expulsion, pitocin was titrated up. She underwent arom around 4cm and received an epidural for pain control. She remained at 4cm for 12+ hours despite pitocin and eventual adequate MVUs on IUPC. However, pt had difficulty with pain control despite multiple redoses. She was counseled regarding continued induction with additional pain management and and desired to proceed with above listed procedure Description of Procedure The patient was taken to the operating room after consents were ensured. The patient was properly identified. Spinal anesthesia was obtained without difficulty. The patient was placed in a dorsal supine position with left lateral tilt, then prepped and draped in normal sterile fashion. Surgical time out was p erformed. Antibiotics were given for prophylaxis. Anesthesia was tested to ensure adequate surgical levels. Pfannenstiel skin incision was performed and carried down to the underlying fascia with a knife. The fascia was then nicked in the midline and extended laterally with pickrobles and Stuart scissors. Superior portion of the fascia was grasped with Kochers x2 and elevated off the underlying rectus muscles using blunt dissection. Inferior portion of the fascia was then grasped with Shea clamps x2 and also elevated off the underlying muscles with blunt dissection. Midline was identified. The peritoneum was then entered and extended to provide adequate room for delivery of baby. A hand was inserted into the abdomen, uterus was noted to be clear of adhesions. Bladder blade was inserted, bladder flap was created in the usual fashion. A low transverse uterine incision was made in the uterus and extended bluntly in a superior to inferior fashion. Amniotomy was made with clear fluid at the time of rupture. head was grasped and elevated through the hysterotomy in an atraumatic fashion. The baby delivered in DEANN position, no nuchal cord. Remainder of the body delivered without incident. Nose and mouth were bulb suctioned on the surgical field. The cord was double clamped and cut, baby was handed off to awaiting pediatrics staff. Cord segment and blood were obtained. Placenta was then expressed from the uterus. The uterus was exteriorized. Several passes were made inside the uterus to remove the remaining membranes. Attention was then turned to the hysterotomy, which was then closed with a running locked suture of 0 Vicryl on a CTX needle. An imbricating layer was then performed using 0-Monocryl. There was noted to be good hemostasis. The posterior cul-de-sac was then inspected and cleaned of clot and debris. The hysterotomy was again inspected and noted to be hemostatic. The uterus was returned to the abdomen. The right and left pericolic gutters were cleaned of all clot and debris. The hysterotomy was again noted to be hemostatic. Space of Retzius was noted to be hemostatic. The fascia was then closed with a running suture of 0 Vicryl on a CT1 needle. Subcutaneous tissue was copiously irrigated and noted to be hemostatic. Subcutaneous tissue was re-approximated using 2-0 plain gut. The skin was then closed with a running suture of 3-0 Monocryl in a subcuticular fashion. At termination of the procedure, fundal pressure was applied and a moderate amount of lochia was expressed. Pressure dressing was applied to the patient. She tolerated the procedure well. All sponge, needle, instrument counts were correct x 2. I attest to the content of the Intraoperative Record and any orders documented therein. Any exceptions are noted below. OB Procedure Charges 30206
[2023-08-01] MEDS ORDERED: MAGNESIUM HYDROXIDE SUSP 30 ML UDC PO PRN (04:50)
[2023-08-01] MEDS ORDERED: HYDROCORTISONE ACETATE 25 MG SUPP PR PRN (04:50)
[2023-08-01] MEDS ORDERED: DIPHTHERIA/TETANUS/PERTUSSIS Vaccine (Tdap, Age 7+yrs) 0.5mL SYR/VL IM ONE (04:50)
[2023-08-01] MEDS ORDERED: BENZOCAINE 20% SPRY 85 APPLN/85 GM CAN EXT PRN (04:50)
[2023-08-01] MEDS ORDERED: OXYTOCIN 20 UNITS in LACTATED RINGER'S 1,000 ML IV SCH (04:50)
[2023-08-01] MEDS ORDERED: SENNA 8.6 MG TAB PO PRN (04:50)
[2023-08-01] MEDS ORDERED: CITRIC ACID/SODIUM CITRATE 15 ML UDC PO SCH (06:00)
[2023-08-01] MEDS ORDERED: SODIUM CHLORIDE 0.9% 250 ML IV PRN (07:03)
[2023-08-01] MEDS: SIMETHICONE 80 MG CHEW PO SCH ×4 (13:54→19:14)
[2023-08-01] MEDS: LACTATED RINGER'S 1,000 ML IV SCH ×3 (15:15→19:14)
[2023-08-01] MEDS: DOCUSATE SODIUM 100 MG CAP PO SCH ×2 (15:44→19:14)
[2023-08-01] MEDS: FERROUS SULFATE 325 MG TAB PO SCH (15:44)
[2023-08-01] MEDS: PRENATAL VITAMIN 1 TAB PO SCH (15:44)
[2023-08-01] MEDS: LEVALBUTEROL TARTRATE 15 GM HFA.AER.AD INH PRN ×2 (18:32→22:48)
[2023-08-01] MEDS ORDERED: diphenhydrAMINE Capsule 25 MG CAP PO PRN (22:40)
[2023-08-02] MEDS: IBUPROFEN 600 MG TAB PO PRN ×5 (00:36→22:33)
--- NOTE | 2023-08-02 05:24 | Obstetrical Progress Note ---
Date of Service <Salty Osorio DO - Last Filed: 08/02/23 06:25> August 02, 2023 Assessment & Plan <Salty Osorio DO - Last Filed: 08/02/23 06:25> (1) S/P section: Plan Post-op day 1 s/p Vital signs reviewed and WNL Pt feels well today, eating, voiding, and ambulating well Pain well controlled with Motrin Routine post-op care - OOB, ambulation, diet progression as tolerated After discharge, will have 6 week follow-up with Dr. Braxton. <Eva Shearer MD - Last Filed: 08/02/23 07:15> (1) S/P section: Subjective <Salty Osorio DO - Last Filed: 08/02/23 06:25> Ambulation: ambulating normally Voiding: no voiding problems Passing Gas:: Yes (no bowel movement since ) Lochia:: Moderate Feeding Type:: breast feeding Pain well controlled with Motrin Review of Systems -Denies fever or chills -Denies dyspnea, chest pain, or palpitations -Denies breast pain + mild dysuria -Denies headache or changes in vision Physical Exam <Salty Osorio DO - Last Filed: 08/02/23 06:25> General: Alert and oriented. No acute distress Cardiac: Regular rate and rhythm, no murmurs appreciated Respiratory: Mild expiratory wheezes appreciated bilaterally, No increased work of breathing Abdominal: Soft, non-tender, non-distended. Bowel sounds present. Uterus: Uterine fundus firm, palpable at level of umbilicus Extremities: No lower extremity edema, calves non-tender bilaterally Results & Data <Salty Osorio DO - Last Filed: 08/02/23 06:25> Vital Signs (Past 12 Hours) Vital Signs Temp Pulse Pulse Resp BP Pulse Ox Pulse Ox 08/02/23 04:00 95 08/02/23 00:00 36.9 C 87 16 113/63 93 08/01/23 22:55 88 20 93 08/01/23 21:00 16 95 08/01/23 19:00 16 94 08/01/23 20:00 37.0 C 86 16 106/63 95 08/01/23 20:00 95 08/01/23 20:00 16 95 08/01/23 20:00 08/01/23 18:00 20 95 08/01/23 18:35 110 H 20 94 08/01/23 18:10 O2 Del Method O2 Del Method O2 Flow Rate O2 Flow Rate 08/02/23 04:00 Nasal Cannula 2 08/02/23 00:00 Room Air 08/01/23 22:55 Room Air 08/01/23 21:00 08/01/23 19:00 08/01/23 20:00 Nasal Cannula 2 08/01/23 20:00 Nasal Cannula 2 08/01/23 20:00 08/01/23 20:00 Nasal Cannula 2 08/01/23 18:00 08/01/23 18:35 Nasal Cannula 2 08/01/23 18:10 Nasal Cannula 2 <Eva Shearer MD - Last Filed: 08/02/23 07:15> Co-Signing Physician Notes Resident Physician Supervision Note: I interviewed and examined the patient. Discussed with Dr. Osorio and agree with findings and plan as documented in the note. Any exceptions or clarifications are listed here: Patient dressing removed by this MD, incision c/d/i. Discussed low oxygen saturations observed during this admission, not fully corrected with NCO2, and loud prolonged snoring with apneic episodes. These are confirmed to occur at home by patient's partner. Advised on likely ANNAMARIA and need for / benefits of CPAP use. [facility] and notes she had a sleep study 3 years ago and was told she did not quite qualify for CPAP. Based on my observations here at [facility] during this admission I feel she would now qualify for and benefit from this intervention. She plans to d/w PCP again after discharge. Documented By: Eva Shearer MD, FACOG Resident Activity Tracking <Salty Osorio DO - Last Filed: 08/02/23 06:25> Resident Involvement: Resident Care Provided Care Provided: OB Delivery
[2023-08-02 06:35] LABS: Basophils # (auto) 0.03 K/uL (0.00-0.20); Basophils % (auto) 0.2 %; Eosinophils # (auto) 0.12 K/uL (0.00-0.50); Eosinophils % (auto) 0.9 %; Hematocrit (blood only) 28.7 % (37.0-47.0); Hemoglobin 9.4 g/dl (12.0-16.0); Immature Granulocytes # (auto) 0.15 K/uL (0.01-0.20); Immature Granulocytes % (auto) 1.1 %; Lymphocytes # (auto) 2.19 K/uL (1.20-3.40); Lymphocytes % (auto) 16.3 %; Mean Corpuscular Hgb Conc 32.8 g/dL (32.0-36.0); Mean Corpuscular Volume 91.7 fL (80.0-100.0); Mean Platelet Volume 10.4 fL (9.4-12.4); Monocytes # (auto) 0.67 K/uL (0.11-0.59); Neutrophils # (auto) 10.26 K/uL (1.40-6.50); Neutrophils % (auto) 76.5 %; Platelet Count 200 K/uL (130-400); RDW Coefficient of Variation 13.4 % (11.5-14.5); RDW Standard Deviation 45.1 fL (36.4-46.3); Red Blood Count 3.13 M/uL (4.20-5.40); White Blood Count 13.42 K/ul (4.8-10.8)
[2023-08-02] MEDS: PRENATAL VITAMIN 1 TAB PO SCH (08:24)
[2023-08-02] MEDS: SIMETHICONE 80 MG CHEW PO SCH ×4 (08:24→20:09)
[2023-08-02] MEDS: DOCUSATE SODIUM 100 MG CAP PO SCH ×2 (08:24→20:09)
[2023-08-02] MEDS: FERROUS SULFATE 325 MG TAB PO SCH (08:24)
[2023-08-02] MEDS: LEVALBUTEROL TARTRATE 15 GM HFA.AER.AD INH PRN (14:12)
[2023-08-02] MEDS ORDERED: bisacodyL 5 MG TABEC PO SCH (20:00)
[2023-08-02] MEDS: ACETAMINOPHEN 325 MG TAB PO PRN (22:41)
[2023-08-03] MEDS ORDERED: bisacodyL 10 MG SUPP PR PRN
[2023-08-03] MEDS: IBUPROFEN 600 MG TAB PO PRN ×2 (04:13→08:04)
[2023-08-03] MEDS: ACETAMINOPHEN 325 MG TAB PO PRN ×2 (04:14→08:08)
--- NOTE | 2023-08-03 06:49 | Obstetrical Progress Note ---
Date of Service <Salty Osorio DO - Last Filed: 08/03/23 06:52> August 03, 2023 Assessment & Plan <Salty Osorio DO - Last Filed: 08/03/23 06:52> (1) S/P section: Plan Post-op day 2 s/p Vital signs reviewed and WNL Pt feels well today, eating, voiding, and ambulating well Pain well controlled with Motrin Routine post-op care - OOB, ambulation, diet progression as tolerated After discharge, will have 6 week follow-up with Dr. Braxton. <Darrell Solano MD - Last Filed: 08/06/23 09:07> (1) S/P section: Subjective <Salty Osorio DO - Last Filed: 08/03/23 06:52> Ambulation: ambulating normally Voiding: no voiding problems Passing Gas:: Yes Diet Tolerance:: regular diet Lochia:: Small Feeding Type:: breast feeding Pain well controlled with Tylenol and Motrin Review of Systems -Denies fever or chills -Denies dyspnea, chest pain, or palpitations -Denies breast pain -Denies dysuria -Denies headache or changes in vision Physical Exam <Salty Osorio DO - Last Filed: 08/03/23 06:52> General: Alert and oriented. No acute distress Cardiac: Regular rate and rhythm, no murmurs appreciated Respiratory: Mild expiratory wheezes appreciated bilaterally, No increased work of breathing Abdominal: Soft, non-tender, non-distended. Bowel sounds present. Uterus: Uterine fundus firm, palpable at level of umbilicus Integumentary: Incision site clean and dry, no erythema or swelling Extremities: No lower extremity edema, calves non-tender bilaterally Results & Data <Salty Osorio DO - Last Filed: 08/03/23 06:52> Vital Signs (Past 12 Hours) Vital Signs Temp Pulse Resp BP Pulse Ox O2 Del Method 08/03/23 04:14 36.5 C 85 18 122/74 93 Room Air 08/02/23 19:35 Room Air 08/02/23 19:35 36.8 C 76 18 110/68 95 Room Air <Darrell Solano MD - Last Filed: 08/06/23 09:07> Co-Signing Physician Notes Patient seen with resident and agree with the above findings and plan. Routine OB care Resident Activity Tracking <Salty Osorio DO - Last Filed: 08/03/23 06:52> Resident Involvement: Resident Care Provided Care Provided: OB Delivery
[2023-08-03 07:45] LABS: Hematocrit (blood only) 28.5 % (37.0-47.0); Hemoglobin 9.4 g/dl (12.0-16.0)
[2023-08-03] MEDS ORDERED: oxyCODONE/ACETAMINOPHEN 5mg/325mg TAB PO PRN (07:47)
[2023-08-03] MEDS: FERROUS SULFATE 325 MG TAB PO SCH (08:04)
[2023-08-03] MEDS: PRENATAL VITAMIN 1 TAB PO SCH (08:05)
[2023-08-03] MEDS: DOCUSATE SODIUM 100 MG CAP PO SCH (08:06)
[2023-08-03] MEDS: SIMETHICONE 80 MG CHEW PO SCH (08:06)
--- NOTE | 2023-08-06 19:19 | Discharge Summary ---
Date of Service August 06, 2023 Admission HPI Per Admitting Provider 33 yo G1 at 41 wga w/ ALICE 07/24 presents for late term IOL. +FM; denies reg ctx, LOF, VB. 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 [facility] at 0346(Bilateral) - Aracelis Braxton MD Hospital Course (1) S/P section: 33 yo G1 at 41 1/7 wga presented for late term IOL yesterday. Pereira bulb had been placed prior to arrival and was still in on admission. Penicillin was started for GBS+ status, pitocin was started for induction. Upon pereira bulb expulsion, pitocin was titrated up. She underwent arom around 4cm and received an epidural for pain control. She remained at 4cm for 12+ hours despite pitocin and eventual adequate MVUs on IUPC. However, pt had difficulty with pain control despite multiple redoses. She was counseled regarding continued induction with additional pain management and and desired to proceed with above listed procedure. See operative report for details. Post-op course was uncomplicated and she was discharged home on POD2 Coding Level of Care Code None Diagnoses S/P section Z98.891
== END 2023-08-03 11:00 | disposition home or self-care (01) | DRG 788 ==
LOC: 4S1 07:35 → 4E2 08-01 06:59

== ENCOUNTER 2024-06-18 06:18 | Observation (INO) ==
--- NOTE | 2024-06-09 09:25 | Anesthesiology Consultation ---
Date of Service June 09, 2024 Assessment & Plan (1) Encounter for pre-operative examination: Chart Review Chart Review: Acceptable Risk for Surgery and Patient NOT seen in Pre Admission Testing Consults Requested none History Surgery Operation Date: 06/19/24 07:45 Proposed Procedures p C5-C6 Anterior Cervical Discectomy and Fusion, Spinal Cord Monitoring - Negro Diaz DO Height/Weight Height: 5 ft 3 in Weight: 99.79 kg Allergies Allergy/AdvReac Type Severity Reaction Status Date / Time Sulfa (Sulfonamide Allergy Intermediate HIVES/VOMIT Verified 05/26/24 08:57 Antibiotics) ING Medications Home Medications Medication Instructions Recorded Confirmed Last Taken acetaminophen 500 mg capsule 1,000 mg PO Q6H PRN Pain 06/12/23 05/26/24 07/30/23 19:30 levalbuterol tartrate 45 2 inh inhalation Q6H PRN Wheezing 06/27/23 05/26/24 07/30/23 12:00 mcg/actuation aerosol inhaler fluoxetine 40 mg capsule (Prozac) 60 mg PO HS 09/20/23 05/26/24 10/29/23 19:30 budesonide 32 mcg/actuation nasal 2 spray intranasal DAILY #8.43 mL 03/03/24 05/26/24 Unknown spray topiramate 50 mg tablet (Topamax) 50 mg PO HS 04/03/24 05/26/24 Unknown tobramycin 0.3 %-dexamethasone 0.1 See Rx Instructions .Route 05/08/24 05/26/24 Unknown % eye drops,suspension .COMPLEX #5 mL Past Medical History Medical History History of tachycardia HR 109 at [facility] pulmonary visit 04/03/23. Per note, "Likely physiologic se condary to and possible anxiety. Patient denies any symptoms at this time. Varinder's edema of vocal folds following with [facility] Lumbar spinal stenosis LPRD (laryngopharyngeal reflux disease) Lesion of vocal fold following with [facility], s/p removal per 10/17 operative note Dysfunction of both eustachian tubes Hyposmia ESTRELLA (dyspnea on exertion) intermittent, part of asthma Chronic cough "smokers cough" Chronic rhinitis History of anesthesia reaction w/thyroid sx, pt had a bronchospasm during induction, woke pt up and "safely" put her back to sleep for the sx.>w/subsequent sx she has been given albuterol treatments prior to sx. Asthma inh prn Gestational diabetes hx Spina bifida occulta Incidental finding noted on remote x-ray age 20s prior to back surgery Hx of Christensen's palsy History of COVID-19 09/2021- mild symptoms > resolved Degenerative disc disease lumbar History of kidney stones passed without intervention Temporomandibular joint disorder No locking x years Post traumatic stress disorder Anxiety and depression Migraine Past Family History Family History Mother Cancer cervical Lung cancer Aunt Ovarian cancer Father Hypertension Allergies Aunt No problems noted. Grandfather Heart disease Grandfather (Paternal) Colorectal cancer Other Cervical cancer No family history of bleeding disorder Denies family history of Breast cancer Stroke Asthma Past Surgical History Surgical History Hx of thyroidectomy 2018- r/t right thyroid nodule (benign) History of esophagogastroduodenoscopy (EGD) Hx of colonoscopy Hx of section 07/2023 History of surgery Direct microlaryngoscopy (09/26/22): Grade view 1, MAC#3 at [facility] History of spinal fusion History of cholecystectomy [place] teeth removed History of placement of ear tubes Ear tubes (2018) History of hip surgery right hip 2017 and 2018 (Labral tear repair/tendon release) Social History Smoking Status: Current every day smoker tobacco type: cigarettes Smoking cigarettes per day: 10 per day - advised Do You Dip or Chew Tobacco: No Hx Alcohol Use: No Hx Substance Use: No substance use type: does not use Testing Electrocardiogram Date: 06/02/24 Findings: + NSR @ Echocardiogram Date: 08/11/21 EF: 55-60 LV Function: normal RWMA: + none
[~2024-06-18 06:18] MED LIST changes: -ACETAMINOPHEN 500 MG TAB PO SCH; +ATROPINE SULFATE 0.1 MG/ML 10ML SYR IV PRN; -CEFAZOLIN 2000MG 2,000 MG/15 ML SYR IV SCH; -CeleBREX 200 MG CAP PO SCH; -GABAPENTIN 900 MG DOSE PO SCH; +HYDROmorphone INJ 2 MG/ML SYR/VIAL IV PRN; -LR 15ML/HR IV SCH; +ONDANSETRON INJ 2 MG/ML 2 ML VIAL IV PRN; +ePHEDrine sulfate 50 MG/ML AMP IV PRN
[2024-06-18] MEDS: LR 60ML/HR IV SCH (06:39)
[2024-06-18] MEDS: LR 15ML/HR IV SCH (06:56)
[2024-06-18] MEDS ORDERED: PROPOFOL IV EMULSION 10 MG/ML 20 ML VIAL IV ONE ×4 (07:14→08:33)
[2024-06-18] MEDS ORDERED: LIDOCAINE 2% 2 ML VIAL/AMP(20MG/ML) INFIL ONE (07:14)
[2024-06-18] MEDS ORDERED: ROCURONIUM BROMIDE 10 MG/ML 5 ML VIAL IV ONE (07:14)
[2024-06-18] MEDS ORDERED: MIDAZOLAM HCL 1 MG/ML 2ML VIAL ONE (07:14)
[2024-06-18] MEDS ORDERED: fentaNYL citrate PF 100 MCG/2 ML VIAL ONE (07:14)
--- NOTE | 2024-06-18 07:36 | History & Physical Bridge Note ---
Date of Service June 18, 2024 History & Physical Bridge Note I have examined the patient, reviewed the History & Physical and in the interval since the performance of the History & Physical I have noted the following changes of clinical significance: no changes noted
--- NOTE | 2024-06-18 07:37 | History & Physical Report ---
Date of Service June 18, 2024 Assessment & Plan (1) Cervical stenosis of spinal canal: Plan: Anterior cervical discectomy and fusion C5-C6 History of Present Illness Chief Complaint: Neck and arm pain Primary Care Provider: Alena Braswell PA-C This is a 34-year-old female who presents with chronic persistent neck and arm pain a failed course of nonoperative care is here for surgical invention. Allergies Allergy/AdvReac Type Severity Reaction Status Date / Time Sulfa (Sulfonamide Allergy Intermediate HIVES/VOMIT Verified 06/18/24 06:37 Antibiotics) ING Home Medications Medication Instructions Recorded Confirmed Type acetaminophen 500 mg capsule 1,000 mg PO Q6H PRN Pain 06/12/23 06/18/24 History levalbuterol tartrate 45 2 inh inhalation Q6H PRN Wheezing 06/27/23 06/18/24 History mcg/actuation aerosol inhaler fluoxetine 40 mg capsule (Prozac) 60 mg PO HS 09/20/23 06/18/24 History budesonide 32 mcg/actuation nasal 2 spray intranasal DAILY #8.43 mL 03/03/24 06/18/24 Rx spray topiramate 50 mg tablet (Topamax) 50 mg PO HS 04/03/24 06/18/24 History Past Med/Surg History Problem List (Updated 06/18/24 @ 07:37 by Negro Diaz DO) Cervical stenosis of spinal canal Chronic rhinitis Hyposmia Bleeding from left ear S/P section with 36 completed weeks gestation Mixed hearing loss, bilateral Decreased movement 33 weeks gestation of Sensorineural hearing loss of both ears has hearing aids, doesn't wear all of the time Carrier of group B Streptococcus Gestational diabetes mellitus (GDM) affecting Otitis media with effusion Tachycardia HR 109 at [facility] pulmonary visit 04/03/23. Per note, "Likely physiologic secondary to and possible anxiety. Patient denies any symptoms at this time. There is no evidence for a DVT or PE at this time. She has a pulse oximeter at home and will keep track of her heart rate. She will discuss this with her OB on Sunday." Per OB 04/09/23, "discussed possibility physiologic related" and to discuss with PCP. Encounter for follow-up ultrasound of anatomy Artificial insemination Tobacco smoking affecting Mixed conductive and sensorineural hearing loss of left ear with restricted hearing of right ear Impacted cerumen, left ear Dysfunction of both eustachian tubes Recurrent acute otitis media LPRD (laryngopharyngeal reflux disease) Varinder's edema of vocal folds following with [facility], no notation on recent office visits Morbid obesity due to excess calories Lesion of vocal fold following with [facility], no notation on recent office visits; s/p removal per 10/17 operative note Tobacco abuse ESTRELLA (dyspnea on exertion) part of asthma Raspy voice Abnormal CT scan, chest Cough chronic Active asthma Neurogenic claudication due to lumbar spinal stenosis Encounter for pre-operative examination Right upper quadrant abdominal pain H/O thyroidectomy 2017- r/t right thyroid nodule (benign) Depression Anxiety Medical History History of tachycardia HR 109 at [facility] pulmonary visit 04/03/23. Per note, "Likely physiologic secondary to and possible anxiety. Patient denies any symptoms at this time. Varinder's edema of vocal folds following with [facility] Lumbar spinal stenosis LPRD (laryngopharyngeal reflux disease) Lesion of vocal fold following with [facility], s/p removal per 10/17 operative note Dysfunction of both eustachian tubes Hyposmia ESTRELLA (dyspnea on exertion) intermittent, part of asthma Chronic cough "smokers cough" Chronic rhinitis History of anesthesia reaction w/thyroid sx, pt had a bronchospasm during induction, woke pt up and "safely" put her back to sleep for the sx.>w/subsequent sx she has been given albuterol treatments prior to sx. Asthma inh prn Gestational diabetes hx Spina bifida occulta Incidental finding noted on remote x-ray age 20s prior to back surgery Hx of Christensen's palsy History of COVID-19 09/2021- mild symptoms > resolved Degenerative disc disease lumbar History of kidney stones passed without intervention Temporomandibular joint disorder No locking x years Post traumatic stress disorder Anxiety and depression Migraine Surgical History Hx of thyroidectomy 2017- r/t right thyroid nodule (benign) History of esophagogastroduodenoscopy (EGD) Hx of colonoscopy Hx of section 07/2023 History of surgery Direct microlaryngoscopy (09/26/22): Grade view 1, MAC#3 at [facility] History of spinal fusion History of cholecystectomy [place] teeth removed History of placement of ear tubes Ear tubes (2019) History of hip surgery right hip 2017 and 2018 (Labral tear repair/tendon release) Family History Mother Cancer cervical Lung cancer Aunt Ovarian cancer Father Hypertension Allergies Aunt No problems noted. Grandfather Heart disease Grandfather (Paternal) Colorectal cancer Other Cervical cancer No family history of bleeding disorder Denies family history of Breast cancer Stroke Asthma Social History Smoking Status: Current every day smoker Tobacco Type: Cigarettes Age Started Using Tobacco: 18; packs per day: 1; Cigarettes Per Day: 10 per day - advised; Second Hand Exposure: Yes (in the past); Do You Dip or Chew Tobacco: No; Tobacco Cessation Education Requested by Patient: No Hx Alcohol Use: No Hx Substance Use: No Preferred Language: Czech Communication Ability: Effective Visual Impairment: Limited Hearing Ability: Hard of Hearing Tree Farmer Required: No Beliefs That Will Affect Care: None marital status: marital status details: partner Yareli Hogue (36) [phone] Current Living Situation: Parent and Family Current Living Situation Comment: lives with partner, parents, dog, cat-family changing litter current occupational status: unemployed How many Children do You have: 0 Other Information That Helps Us Care for You: No Feels Safe at Home: Yes Safety Concerns: Feels Safe At This Time Diet: regular Do you think of yourself as: lesbian/pope/homosexual Gender Identity: Female Assistive Devices: Hearing Aid - Bilateral Physical Exam Physical Exam: Patient is alert and oriented heart regular rhythm Lungs clear Results & Data Results & Data Vital Signs (Past 12 Hours) Vital Signs Temp Pulse Resp BP Pulse Ox O2 Del Method 06/18/24 06:41 37.1 C 62 20 111/68 97 Room Air
[2024-06-18] MEDS: ceFAZolin 2000MG 2,000 MG/15 ML SYR IV ONE (07:45)
[2024-06-18] MEDS ORDERED: KETAMINE HCL 10MG/ML SYR ONE (08:06)
[2024-06-18] MEDS ORDERED: HYDROmorphone INJ 2 MG/ML SYR/VIAL ONE (08:12)
[2024-06-18] MEDS ORDERED: DEXAMETHASONE SOD INJ 4 MG/ML VIAL ONE (08:20)
[2024-06-18] MEDS ORDERED: ONDANSETRON INJ 2 MG/ML 2 ML VIAL ONE (08:20)
[2024-06-18] MEDS ORDERED: ceFAZolin 330 MG/ML 1 GM VIAL ONE (08:20)
[2024-06-18] MEDS ORDERED: ALBUTEROL HFA 8 GM INHALER INH ONE (08:20)
[2024-06-18] MEDS ORDERED: GLYCOPYRROLATE 0.2 MG/ML VIAL ONE (08:50)
[2024-06-18] MEDS ORDERED: NEOSTIGMINE METHYLSULFATE 1 MG/ML 10ML VIAL ONE (08:50)
[2024-06-18] MEDS: FLOSEAL HEMOSTATIC MATRIX 10ML TOP ONE (08:51)
[2024-06-18] MEDS: ceFAZolin 330 MG/ML 1 GM VIAL ONE (08:52)
--- NOTE | 2024-06-18 08:54 | Operative Report ---
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 #2 anterior cervical arthrodesis C5-C6. #3 placement of Spira 8 mm cage filled with os design bone graft C5-C6. #4 application of K2 M plate and screws across C5-C6. Surgeon Negro Diaz, Fisheries Officer Analisa Taylor Estimated Blood Loss 10 Findings See Below The patient is 5 foot 3 weighing over 101 kg with a BMI in excess of 39. Patient's body habitus did contribute to significant technical difficulty with positioning exposure and the procedure itself. This had at least 50% increased operative time. Specimens None Indications This is a 34-year-old female who presents above-mentioned diagnosis of failed course of nonoperative care is here for surgical invention. Description of Procedure Patient was met with identified informed consent obtained. Patient was then taken to the operative suite underwent patient placed in supine position on the Alban table with head Cardenas head worker. All bony promises well-padded eyes inspected to ensure no external pressure placed upon them. This point the anterior cervical spine was prepped and draped normal sterile fashion. With the assistance of fluoroscopy identified the C5-C6 disc base and a transverse incision was placed along the right anterior aspect of the cervical spine overlying this region. Blunt dissection with the assistance of bipolar electrocautery was performed down to and exposing the anterior cervical spine at C5-C6. Self-retaining retractor was placed. Then performed a complete discectomy at C5-C6 out to the uncovertebral joints bilaterally. [place] distraction pins were utilized to assist in visualization. Removed all posterior annular fibers longitudinal ligament bilateral foraminotomies were performed. Endplates burred to subcortical bleeding bone and 8 mm spiral cage filled with os design bone graft tapped in position. Distracting apparatus was removed and a K2 M plate and screws applied with the assistance of fluoroscopy. Incision was then copiously irrigated explored to ensure no damage to surrounding structures remaining pending. 10 round LI drain inserted. The incision was then closed with 2 Vicryl in the fascia and 4 Monocryl for final skin closure. Steri-Strips sterile dressing placed. Patient waken taken to PACU in stable condition. Please note spinal cord monitoring was utilized at the procedure no changes noted. Analisa Taylor was present at the entire surgeon while the patient positioning complex portion of the surgery and final skin closure. Im ordering 10 grams of Triple [place] Collagen Powder ([facility] [id number]) to treat an incision wound that was caused by a spine procedure. The incision is approximately 2 cm(W) x 4 cm(L) into the joint (D) in size and is a full t hickness wound. Triple [place] collagen comes in 1 gram packets so 10 packets were ordered. Given the size of the wound, with light to moderate exudate I chose to order a 10 day supply. The patient will be provided instructions for proper application of the collagen wound kit. The patient will be asked to apply the collagen powder daily and then cover it with sterile dressings dispensed. Collagen was selected as I expect the collagen to attract monocytes and fibroblasts, act as a sacrificial substrate for MMPs, and ultimately proved a matrix for tissue and vessel growth. The collagen will act as a primary dressing in this scenario. It is medically necessary for proper healing of these wounds to improve bioavailability and contact with each wound surface, this is also to help prevent infection of wounds and promote healing ultimately leading to a better healing outcome and limit the risk of infection. I attest to the content of the Intraoperative Record and any orders documented therein. Any exceptions are noted below.
[2024-06-18] MEDS ORDERED: ATROPINE SULFATE 0.1 MG/ML 10ML SYR IV PRN (09:39)
[2024-06-18] MEDS ORDERED: ONDANSETRON INJ 2 MG/ML 2 ML VIAL IV PRN ×2 (09:39→12:39)
[2024-06-18] MEDS ORDERED: ePHEDrine sulfate 50 MG/ML AMP IV PRN (09:39)
--- NOTE | 2024-06-18 09:40 | Anesthesiology Progress Note ---
Date of Service June 18, 2024 Anesthesia Post Procedure Vital Signs Vital Signs: Temp Pulse Resp BP Pulse Ox O2 Del Method O2 Flow Rate 06/18/24 09:30 96 H 20 157/87 H 99 Oxymask 4 06/18/24 09:25 96 H 18 152/109 H 96 Oxymask 4 06/18/24 09:15 98 H 18 148/95 H 95 Oxymask 8 06/18/24 09:06 36.0 C L 86 15 131/91 94 Oxymask 8 06/18/24 06:41 37.1 C 62 20 111/68 97 Room Air Pain Intensity Neck: Pain Intensity: 4 Transfer of Care Handoff Completed per policy Notes Mental Status: alert / awake / arousable and participated in evaluation Nausea / Vomiting: adequately controlled Pain: adequately controlled Airway Patency, RR, SpO2: stable & adequate BP & HR: stable & adequate Hydration State: stable & adequate Anesthetic Complications: no major complications apparent and Pt Satisfied with anesthetic care
[2024-06-18] MEDS: HYDROmorphone INJ 2 MG/ML SYR/VIAL IV PRN (09:45)
[2024-06-18] MEDS ORDERED: DO NOT ADMINISTER FLU VACCINE PRN (12:39)
[2024-06-18] MEDS ORDERED: METOCLOPRAMIDE HCL INJ 5 MG/ML 2 ML VIAL IV PRN (12:39)
[2024-06-18] MEDS ORDERED: hydrOXYzine HCl 25 MG TAB PO PRN (12:39)
[2024-06-18] MEDS ORDERED: FAMOTIDINE 20 MG TAB PO PRN (12:39)
[2024-06-18] MEDS ORDERED: DO NOT ADMINISTER PNEUMOCOCCAL VACCINE PRN (12:39)
[2024-06-18] MEDS ORDERED: ACETAMINOPHEN 1,000 MG/100 ML VIAL IV PRN (12:39)
[2024-06-18] MEDS ORDERED: ONDANSETRON 4 MG OD TAB PO PRN (12:39)
[2024-06-18] MEDS ORDERED: SOD PHOSPHATE/SOD BIPHOSPHATE ENEMA 132 ML BTL PR PRN (12:39)
[2024-06-18] MEDS ORDERED: LORazepam 0.5 MG in SYRINGE 0.25 ML IV PRN (12:39)
[2024-06-18] MEDS ORDERED: ACETAMINOPHEN 500 MG TAB PO PRN (12:39)
[2024-06-18] MEDS ORDERED: RACEPINEPHRINE 2.25% NEBU SOLN 0.5 ML VIAL INH PRN (12:39)
[2024-06-18] MEDS ORDERED: bisacodyL 10 MG SUPP PR PRN (12:39)
[2024-06-18] MEDS ORDERED: LEVALBUTEROL TARTRATE 15 GM HFA.AER.AD INH PRN (12:39)
[2024-06-18] MEDS ORDERED: ALUMINUM/MAGNESIUM SUSP 30 ML UDC PO PRN (12:39)
[2024-06-18] MEDS ORDERED: dexAMETHasone 8 MG in SYRINGE 0 ML IV PRN (12:39)
[2024-06-18] MEDS ORDERED: HYDROmorphone INJ 1 MG/ML SYRINGE IV PRN (12:39)
[2024-06-18] MEDS ORDERED: HYDROmorphone INJ 0.5 MG/0.5 ML SYR IV PRN (12:39)
[2024-06-18] MEDS ORDERED: MAGNESIUM HYDROXIDE SUSP 30 ML UDC PO PRN (12:39)
[2024-06-18] MEDS ORDERED: NALOXONE HCL 0.4 MG/1 ML VIAL/CARP IV PRN (12:39)
[2024-06-18] MEDS ORDERED: diphenhydrAMINE Capsule 25 MG CAP PO PRN (12:39)
[2024-06-18] MEDS ORDERED: PROMETHAZINE HCL 12.5 MG in SODIUM CHLORIDE 0.9% 50 ML IV PRN (12:39)
[2024-06-18] MEDS: LACTATED RINGER'S 1,000 ML IV SCH (14:18)
[2024-06-18] MEDS: dexAMETHasone 6 MG in SYRINGE 0 ML IV SCH (14:18)
--- NOTE | 2024-06-18 14:50 | Fluoroscopy Report ---
FL cervical 2-3V CLINICAL HISTORY: ACDF C5-C6 COMPARISON STUDY: None. FLUOROSCOPY TIME: 8 seconds. FLUOROSCOPY IMAGES: 2 Ka,r: 1.1 mGy FINDINGS: Anterior cervical discectomy and fusion at C5-C6. The hardware appears intact. The endotrac heal tube is partially visualized IMPRESSION: Fluoroscopic assistance as above. ACT 112: Negative or not required by law. Electronically signed by: Mahin Smyth M.D. 06/18/2024 2:49 PM
[2024-06-18] MEDS: oxyCODONE HCL IR 5 MG TAB (IMMEDIATE RELEASE) PO PRN (14:57)
[2024-06-18] MEDS: ceFAZolin 2000MG 2,000 MG/15 ML SYR IV SCH (14:58)
[2024-06-18] MEDS: NICOTINE 14 MG/24 HR PATCH TD SCH (17:42)
[2024-06-18] MEDS: DOCUSATE SODIUM/SENNA 50/8.6MG TAB PO SCH (21:26)
[2024-06-18] MEDS: FLUoxetine HCL 20 MG CAP PO SCH (21:26)
[2024-06-18] MEDS: TOPIRAMATE 50 MG TAB PO SCH (21:27)
[2024-06-18] MEDS: traMADol HCL 50 MG TABLET PO PRN (21:33)
[2024-06-19] MEDS: LORazepam 0.5 MG TAB PO PRN (00:27)
[2024-06-19] MEDS: POLYETHYLENE (MIRALAX) 17 GM PACK PO SCH (05:24)
[2024-06-19] MEDS: FLUTICASONE PROPIONATE NA SPR 16 GM BTL SCH (07:59)
--- NOTE | 2024-06-19 09:25 | Discharge Summary ---
Date of Service June 19, 2024 Admission HPI Per Admitting Provider This is a 34-year-old female who presents with chronic persistent neck and arm pain a failed course of nonoperative care is here for surgical invention. Principal Diagnosis Cervical spinal stenosis with radiculopathy Discharge Data Allergies Allergy/AdvReac Type Severity Reaction Status Date / Time Sulfa (Sulfonamide Allergy Intermediate HIVES/VOMIT Verified 06/18/24 06:37 Antibiotics) ING Procedures Performed Operation Date: 06/18/24 07:45 Actual Procedures p C5-C6 Anterior Cervical Discectomy and Fusion, Spinal Cord Monitoring - Negro Diaz DO Ordered Studies 06/18/24 07:45 [place] cervical 2-3V Routine Hospital Course (1) Cervical stenosis of spinal canal: Patient underwent anterior cervical discectomy fusion trial as well as negative orthopedic for postoperative. Postop day #1 she was swallowing well. No hoarseness. Excellent strength testing. Pain well-controlled. Subsidy discharged home. Discharge orders instructions from the chart for further review. Total Time Total Time Spent Total Time Spent (In Minutes): 20 minutes Discharge Plan Discharge Items Patient Disposition: Home - Self-Care Reason For Visit: Cervical Disc Disease Discharge Diagnosis: Cervical spinal stenosis with radiculopathy Activity: As commented below Non-emergency contact: Primary Care Provider Call non-emergency contact if: you have any medication questions Follow-up/Referrals: Alena Braswell PA-C [Primary Care Provider] - Diet: Regular Addtl Attending Provider Instructions: ACTIVITY RECOMMENDATIONS: SELF CARE INSTRUCTIONS AFTER THORACIC/LUMBAR FUSIONS 1. You may walk to your tolerance. It is good exercise for your legs and back. Expect some back and intermittent leg aches and pains. 2. You may perform "counter-top" level activities (make a sandwich, donato with a project, etc.). 3. No bending or lifting of more than 10 pounds or back twisting of any nature (roll like a log when turning in bed). 4. You may ride in a car for 20-30 minutes at a time. No driving until after your first visit with your doctor. 5. Frequent changes of position and restricting sitting to 30 minutes at a time will help limit the amount of back spasms and stiffness you may experience. 6. You may discontinue the use of ambulatory aids (cane, crutches, etc.) once your strength and confidence allow. 7. You may machine clerical verifier the shower and let water strike your incision when you arrive home at least once daily. Do not take a tub bath, sit in a hot tub or go into a swimming pool until after your first recheck in the office. SPECIAL CARE INSTRUCTIONS: VERY IMPORTANT TO READ AND REVIEW A. Your surgical incision has been closed with a cosmetic suture under the skin that will dissolve in about 6 weeks. In 14 days, you can use a pair of clean scissors and cut the suture that is left outside of the skin at the ends of your incision. 1. The small skin tapes can be removed 7 days after surgery if they have not fallen off by that point. 2. You may keep the wound open to air as much as possible to promote healing after post-op day number 5 unless told otherwise by your doctor. 3. If you think the wound looks like it is becoming infected (redness or worsening drainage) and/or you are experiencing fever, chill or worsening back pain and muscle spasms, contact the office so that we may evaluate you as soon as possible. B. Complications are uncommon, but please contact us if you have any signs or symptoms of: 1. wound infection (fever higher than 102.5 degrees F, redness, separation of wound, drainage, or increasing pain from the incision) 2. blood clots in legs (pain, swelling, redness and warmth in legs) 3. urinary tract infection (fever higher than 102.5 degrees F, burning upon urination or increased frequency of urination) 4. nerve problems (inability to walk on your toes or heels, numbness, loss of bowel or bladder control) 5. any other symptoms that concern you C. Please call the office at if you have any concerns or questions about your operation or recovery. D. No smoking! Smoking drastically decreases the chance of a solid fusion. E. Do not take any anti-inflammatory medications (Indocin, Advil, Motrin, Aspirin, Naprosyn, etc.) as these may inhibit the chance of a solid fusion. Tylenol is okay to take for pain. MANAGING PAIN AFTER SPINAL SURGERY 1. Narcotic medication is intended for short-term use and will be provided for surgical pain. Surgical pain usually lasts for a period of 4-6 weeks. Narcotic medication includes Percocet, Vicodin, Darvocet, Tylenol #3 or Lortab. 2. Longer-term pain is more appropriately treated with non-narcotic medication such as Tylenol ES. 3. Muscle spasm is not appropriately treated with narcotics. Muscle relaxers such as Soma, Flexeril or Skelaxin can be used along with Tylenol ES. 4. Remember that we all live with some "aches and pains". This is not unusual or uncommon after an injury or as we get older. a. Back pain is expected and may include muscle spasms for 4 to 6 weeks after surgery. The pain should gradually improve. If the pain worsens for no apparent reason, please contact the office. b. Intermittent leg pain may also be experienced and should not be concerned about unless it worsens for no apparent reason. If so, please contact the office. 5. We will provide appropriate medication within the normal guidelines of their prescribed use. We will also be very cautious and aware of potential abuse and extended duration of patients' medication needs. a. Pain medications are for your comfort and to assist with sleep and rest so that the tissue can heal. They are not provided in order to return to normal activity and should not be used through the day. To do so or worsening pain at night can result from ongoing tissue damage and development of tolerance to the prescribed medicine. 6. Please allow 2-3 days to process refills. Prescriptions will not be mailed but must be picked up at the office. FOLLOW UP VISIT: Keep your scheduled follow-up appointment. Any questions, please call the office at . Pending Studies at Discharge: No Stand-Alone Forms: [facility], Smoking Cessation Medications and [place] Order Prescriptions: New tramadol 50 mg tablet 50 mg PO Q6H PRN (Reason: pain, moderate) Qty: 20 0RF oxycodone 5 mg tablet 5 mg PO Q6H PRN (Reason: pain) Qty: 20 0RF Continued topiramate [Topamax] 50 mg tablet 50 mg PO HS acetaminophen 500 mg capsule 1,000 mg PO Q6H PRN (Reason: Pain) budesonide 32 mcg/actuation spray,non-aerosol 2 spray intranasal DAILY Qty: 8.43 6RF Rx Instructions: administer into each nostril fluoxetine [Prozac] 40 mg Capsule 60 mg PO HS levalbuterol tartrate 45 mcg/actuation HFA aerosol inhaler 2 inh inhalation Q6H PRN (Reason: Wheezing) Discharge Orders: Discharge Order (Routine); Ordered 06/19/24 Ordered By: Negro iDaz Admission Data Admit Date/Time: 06/18/24 08:56 Attending Provider: Negro Diaz Admit Provider: Negro Diaz Primary Care Provider: Alena Braswell
== END 2024-06-19 11:20 | disposition home or self-care (01) ==
LOC: ASU 06:18 → PACUINP 06:18 → 3E 12:38